=== PATIENT | male | born 1965 | race Hispanic/Latino ===

== ENCOUNTER 2016-12-29 16:53 | Inpatient (IN) | payer MEDICAID ==
[2016-12-29] MEDS ORDERED: Morphine 2 mg/ml ISec ONE (21:33)
[2016-12-29] MEDS ORDERED: Nitroglycerin 2% Ointment Foilpak UD TOP ONE (21:45)
[2016-12-29 22:17] LABS: ALB/GLOB RATIO 0.9 (1.1-1.8); ALBUMIN 3.5 g/dL (3.0-4.8); ALT/SGPT 24 U/L (7-56); AST/SGOT 28 U/L (15-59); BLOOD UREA NITROGEN 15 mg/dL (7-21); CALCIUM 9.1 mg/dL (8.4-10.5); GFR AFRICAN-AMERICAN > 60; GFR NON-AFRICAN AMERICAN > 60; TROPONIN I < 0.01 ng/mL
[2016-12-29 22:19] LABS: HEMOGLOBIN 14.3 gm/dL (14.0-18.0); MEAN CELL VOLUME 94.1 fL (80.0-105.0); MEAN CORPUSCULAR HEMOGLOBIN 32.4 pg (25.0-35.0); MEAN CORPUSCULAR HGB CONC 34.4 g/dl (31.0-37.0); MEAN PLATELET VOLUME 9.9 fl (7.0-11.0); RBC 4.42 10^6/uL (3.5-6.1); RED CELL DISTRIBUTION WIDTH 14.7 % (11.5-14.5); WHITE BLOOD COUNT 8.2 10^3/ul (4.5-11.0)
[2016-12-29 22:20] LABS: PARTIAL THROMBOPLASTIN TIME 29.4 Seconds (23.7-30.8); PROTHROMBIN TIME 10.8 Seconds (9.9-11.8)
[2016-12-30] MEDS: Morphine 2 mg/ml ISec IVP PRN ×5 (01:31→20:30)
[2016-12-30 01:56] VITALS: BMI 28.0
[2016-12-30] MEDS ORDERED: Pneumococcal 23-Valent Vaccine IM ONE (03:17)
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
[2016-12-30 07:16] LABS: BASO # 0.02 K/mm3 (0.0-2.0); BASO % 0.2 % (0.0-3.0); EOS # 0.1 (0.0-0.7); EOS % 0.8 % (1.5-5.0); GRAN # 1.72 (1.4-6.5); GRAN % 18.2 % (50.0-68.0); HEMOGLOBIN 15.6 gm/dL (14.0-18.0); LYMPH # 6.8 (1.2-3.4); MEAN CELL VOLUME 93.8 fL (80.0-105.0); MEAN CORPUSCULAR HEMOGLOBIN 32.1 pg (25.0-35.0); MEAN CORPUSCULAR HGB CONC 34.2 g/dl (31.0-37.0); MEAN PLATELET VOLUME 9.7 fl (7.0-11.0); MONO # 0.8 (0.1-0.6); MONO % 8.8 % (1.0-6.0); PLATELET COUNT 153 10^3/uL (120.0-450.0); RBC 4.86 10^6/uL (3.5-6.1); RED CELL DISTRIBUTION WIDTH 14.7 % (11.5-14.5); WHITE BLOOD COUNT 9.5 10^3/ul (4.5-11.0)
[2016-12-30 08:28] LABS: ALBUMIN 3.6 g/dL (3.0-4.8); ALT/SGPT 18 U/L (7-56); AST/SGOT 29 U/L (15-59); BLOOD UREA NITROGEN 18 mg/dL (7-21); CALCIUM 9.2 mg/dL (8.4-10.5); GFR AFRICAN-AMERICAN > 60; GFR NON-AFRICAN AMERICAN > 60; HDL CHOLESTEROL 33 mg/dL (29-60); LDL CHOLESTEROL 92 mg/dL (0-129)
[2016-12-30] MEDS: Enoxaparin 80 mg Syringe SC SCH ×2 (09:00→20:33)
[2016-12-30] MEDS ORDERED: Nitroglycerin 2% Ointment Foilpak UD TOP STA (09:18)
--- NOTE | 2016-12-30 10:39 | CARD ---
APPROVED REPORT EKG Measurement Heart [id number] <Conclusion> Normal sinus rhythm Normal ECG
--- NOTE | 2016-12-30 11:23 | RAD ---
HISTORY: Chest pain. Technique: Single view portable semi erect @ 17:31. COMPARISON: No prior. FINDINGS: LUNGS: No active pulmonary disease. PLEURA: No significant pleural effusion identified, no pneumothorax apparent. CARDIOVASCULAR: No radiographic findings to suggest acute or significant cardiovascular disease.Position/ configuration of pacemaker device: Satisfactory. OSSEOUS STRUCTURES: No significant abnormalities. VISUALIZED UPPER ABDOMEN: Normal. OTHER FINDINGS: None. IMPRESSION: No active disease.
[2016-12-30] MEDS ORDERED: Morphine 2 mg/ml ISec IVP STA (15:47)
[2016-12-31] MEDS: Morphine 2 mg/ml ISec IVP PRN ×3 (01:32→09:35)
[2016-12-31 07:35] LABS: BASO # 0.02 K/mm3 (0.0-2.0); BASO % 0.3 % (0.0-3.0); EOS # 0.1 (0.0-0.7); EOS % 1.1 % (1.5-5.0); GRAN # 2.01 (1.4-6.5); GRAN % 31.9 % (50.0-68.0); HEMOGLOBIN 16.1 gm/dL (14.0-18.0); LYMPH # 3.6 (1.2-3.4); MEAN CELL VOLUME 92.7 fL (80.0-105.0); MEAN CORPUSCULAR HEMOGLOBIN 32.5 pg (25.0-35.0); MEAN PLATELET VOLUME 9.7 fl (7.0-11.0); MONO # 0.6 (0.1-0.6); MONO % 9.7 % (1.0-6.0); PLATELET COUNT 173 10^3/uL (120.0-450.0); RBC 4.96 10^6/uL (3.5-6.1); RED CELL DISTRIBUTION WIDTH 14.7 % (11.5-14.5); WHITE BLOOD COUNT 6.3 10^3/ul (4.5-11.0)
[2016-12-31] MEDS: Enoxaparin 80 mg Syringe SC SCH ×2 (07:56→21:17)
[2016-12-31 08:13] LABS: ALB/GLOB RATIO 0.9 (1.1-1.8); ALBUMIN 3.6 g/dL (3.0-4.8); ALT/SGPT 16 U/L (7-56); AST/SGOT 28 U/L (15-59); BLOOD UREA NITROGEN 14 mg/dL (7-21); CALCIUM 9.1 mg/dL (8.4-10.5); GFR AFRICAN-AMERICAN > 60; GFR NON-AFRICAN AMERICAN > 60; MAGNESIUM 1.8 mg/dL (1.7-2.2)
[2016-12-31] MEDS: Oxycodone/Acetaminophen 10/325 mg Tab PO PRN ×3 (12:45→21:20)
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
--- NOTE | 2016-12-31 14:09 | CP.PCM.PN ---
<JAMES FINE - Last Filed: 12/31/16 16:15> Subjective - Date & Time of Evaluation Date of Evaluation: 12/31/16 Time of Evaluation: 07:10 - Subjective Subjective: Mr. Hull was seen and examined bedside. The patient was complaining of a headache and chest pain on scale 6-10 that's constant and that the morphine is not doing anything for him. Pt states that his hospital is [facility] ([address] [place] [address]) and states that he is being given Percocet which helps him with his angina pain. Pt denies any other complaints or overnight events. @1500, the pt complained of a bulge in his groin, that he noticed today for the first time as he was washing himself. The bulge is not painful and he states that he has been coughing for the last few days. Objective - Vital Signs/Intake and Output Vital Signs (last 24 hours): Temp Pulse Resp BP Pulse Ox 98.4 F 60 18 132/90 96 12/31/16 12:00 12/31/16 12:00 12/31/16 12:00 12/31/16 12:00 12/31/16 06:00 Intake and Output: 12/31/16 12/31/16 06:59 18:59 Intake Total 900 Output Total 1400 Balance -500 - Medications Medications: Current Medications Alprazolam (Xanax) 0.5 mg PO BID PRN; Protocol PRN Reason: Anxiety Last Admin: 12/31/16 06:36 Dose: 0.5 mg Amlodipine Besylate (Norvasc) 2.5 mg PO DAILY [facility] Last Admin: 12/31/16 10:07 Dose: 2.5 mg Aspirin (Ecotrin) 81 mg PO DAILY [facility] Last Admin: 12/31/16 10:07 Dose: 81 mg Clopidogrel Bisulfate (Plavix) 75 mg PO DAILY [facility] Last Admin: 12/31/16 10:07 Dose: 75 mg Divalproex Sodium (Depakote Dr(*Bid*)) 500 mg PO BID [facility] Enoxaparin Sodium (Lovenox) 80 mg SC Q12H [facility] PRN Reason: Protocol Last Admin: 12/31/16 07:56 Dose: 80 mg Gabapentin (Neurontin) 100 mg PO Q8H [facility] PRN Reason: Protocol Last Admin: 12/31/16 05:19 Dose: 100 mg Isosorbide Mononitrate (Imdur) 30 mg PO DAILY [facility] Metoprolol Tartrate (Lopressor) 25 mg PO BID [facility] Last Admin: 12/31/16 10:07 Dose: 25 mg Morphine Sulfate (Morphine) 1 mg IVP Q4 PRN PRN Reason: SEVERE PAIN Last Admin: 12/31/16 09:35 Dose: 1 mg Oxycodone/Acetaminophen (Percocet 10/325 Mg Tab) 1 tab PO Q4H PRN PRN Reason: Pain, moderate (4-7) Last Admin: 12/31/16 12:45 Dose: 1 tab Pantoprazole Sodium (Protonix Inj) 40 mg IVP DAILY [facility] Last Admin: 12/31/16 10:07 Dose: 40 mg Quetiapine Fumarate (Seroquel) 50 mg PO HS [facility] PRN Reason: Protocol Last Admin: 12/30/16 21:18 Dose: 50 mg - Labs Labs: 12/31/16 07:15 12/31/16 07:15 PT 10.8 Seconds (9.9-11.8) 12/29/16 17:45 INR 1.00 (0.93-1.08) 12/29/16 17:45 APTT 29.4 Seconds (23.7-30.8) 12/29/16 17:45 - Constitutional Appears: Well, No Acute Distress - Head Exam Head Exam: ATRAUMATIC, NORMAL INSPECTION, NORMOCEPHALIC - Eye Exam Eye Exam: Normal appearance - ENT Exam ENT Exam: Mucous Membranes Moist - Respiratory Exam Respiratory Exam: Clear to Ausculation Bilateral, NORMAL BREATHING PATTERN. absent: Rales, Rhonchi, Wheezes - Cardiovascular Exam Cardiovascular Exam: RRR - GI/Abdominal Exam GI & Abdominal Exam: Soft, Normal Bowel Sounds. absent: Mass - Exam External exam: Swelling Additional comments: R sided hernia (reducible) - Neurological Exam Neurological Exam: Alert, Awake, Oriented x3 - Psychiatric Exam Psychiatric exam: Anxious Assessment and Plan - Assessment and Plan (Free Text) Assessment: 51 yo M PMHx CAD s/p stent a few years ago, with recent cath at [facility] [place] who presented with left-sided chest pain radiating into the left arm and neck. 1. Chest pain r/o ACS 2. Anxiety 3. Hernia Plan: 1. Chest pain r/o ACS - cath report obtained from [facility] [place] showed coronaries were normal except non- obstructive single vessel CAD; pacemaker interrogated. - start Imdur for angina - start pt on Percocet for pain control (verified with pharmacy that he takes ) - Troponin negative x3 - EKG showed NSR - Cardiology consulted; recs appreciated 2. Anxiety - restarted Depakot (outpatient med) 3. Hernia is reducible - f/u outpatient GI prophylaxis: Protonix Pt seen, discussed and evaluated with Dr. Schmitz <Nadir ALEJANDRO,Danie - Last Filed: 12/31/16 16:38> Objective - Vital Signs/Intake and Output Vital Signs (last 24 hours): Temp Pulse Resp BP Pulse Ox 98.4 F 64 18 132/90 96 12/31/16 12:00 12/31/16 14:00 12/31/16 12:00 12/31/16 12:00 12/31/16 06:00 Intake and Output: 12/31/16 12/31/16 06:59 18:59 Intake Total 900 Output Total 1400 Balance -500 - Medications Medications: Current Medications Alprazolam (Xanax) 0.5 mg PO BID PRN; Protocol PRN Reason: Anxiety Last Admin: 12/31/16 06:36 Dose: 0.5 mg Amlodipine Besylate (Norvasc) 2.5 mg PO DAILY [facility] Last Admin: 12/31/16 10:07 Dose: 2.5 mg Aspirin (Ecotrin) 81 mg PO DAILY [facility] Last Admin: 12/31/16 10:07 Dose: 81 mg Clopidogrel Bisulfate (Plavix) 75 mg PO DAILY [facility] Last Admin: 12/31/16 10:07 Dose: 75 mg Divalproex Sodium (Depakote Dr(*Bid*)) 500 mg PO BID [facility] Enoxaparin Sodium (Lovenox) 80 mg SC Q12H [facility] PRN Reason: Protocol Last Admin: 12/31/16 07:56 Dose: 80 mg Gabapentin (Neurontin) 100 mg PO Q8H [facility] PRN Reason: Protocol Last Admin: 12/31/16 14:27 Dose: 100 mg Isosorbide Mononitrate (Imdur) 30 mg PO DAILY [facility] Metoprolol Tartrate (Lopressor) 25 mg PO BID [facility] Last Admin: 12/31/16 10:07 Dose: 25 mg Morphine Sulfate (Morphine) 1 mg IVP Q4 PRN PRN Reason: SEVERE PAIN Last Admin: 12/31/16 09:35 Dose: 1 mg Oxycodone/Acetaminophen (Percocet 10/325 Mg Tab) 1 tab PO Q4H PRN PRN Reason: Pain, moderate (4-7) Last Admin: 12/31/16 12:45 Dose: 1 tab Pantoprazole Sodium (Protonix Inj) 40 mg IVP DAILY [facility] Last Admin: 12/31/16 10:07 Dose: 40 mg Quetiapine Fumarate (Seroquel) 50 mg PO HS [facility] PRN Reason: Protocol Last Admin: 12/30/16 21:18 Dose: 50 mg - Labs Labs: 12/31/16 07:15 12/31/16 07:15 PT 10.8 Seconds (9.9-11.8) 12/29/16 17:45 INR 1.00 (0.93-1.08) 12/29/16 17:45 APTT 29.4 Seconds (23.7-30.8) 12/29/16 17:45 Attending/Attestation - Attestation I have personally seen and examined this patient.: Yes I have fully participated in the care of the patient.: Yes I have reviewed all pertinent clinical information, including history, physical exam and plan: Yes Notes (Text): 12/31/16 16:35 Patient was seen and examined with medical orderly .Agreed with resident assessment and plan. 51 M with PMH of CAD,sp Stent, SP pacemaker , [place] [facility] [place] was admitted with chest pain, EKG is NSR, serial troponins normal, patient is still c/o chest pain on ASA/Plavix/lovenox/metoprolol and amlodipine ,we will add Imdur.,aw[place]ing [place] cardiac [place] [facility] [place]We will follow up cardiology recommendation. Patient also has right inguinal hernia which is reducible. Management plan was discussed in detail with patient Education was provided.
[2016-12-31 15:43] LABS: BARBITURATES, UR NEGATIVE (NEGATIVE); BENZODIAZEPINES, UR NEGATIVE (NEGATIVE); OPIATES, UR NEGATIVE (NEGATIVE); PHENCYCLIDINE, UR NEGATIVE (NEGATIVE)
[2016-12-31] MEDS: Divalproex 500 mg DR(BID formulation) PO SCH (17:16)
[2017-01-01] MEDS: Oxycodone/Acetaminophen 10/325 mg Tab PO PRN ×5 (01:55→20:05)
[2017-01-01] MEDS: Enoxaparin 80 mg Syringe SC SCH ×2 (09:16→21:02)
[2017-01-01] MEDS: Divalproex 500 mg DR(BID formulation) PO SCH ×2 (09:16→17:44)
[2017-01-01 09:48] LABS: HEMOGLOBIN 16.5 gm/dL (14.0-18.0); MEAN CORPUSCULAR HEMOGLOBIN 32.2 pg (25.0-35.0); MEAN CORPUSCULAR HGB CONC 34.2 g/dl (31.0-37.0); MEAN PLATELET VOLUME 9.8 fl (7.0-11.0); RBC 5.13 10^6/uL (3.5-6.1); RED CELL DISTRIBUTION WIDTH 14.7 % (11.5-14.5); WHITE BLOOD COUNT 4.9 10^3/ul (4.5-11.0)
[2017-01-01 10:04] LABS: ALB/GLOB RATIO 0.9 (1.1-1.8); ALBUMIN 3.6 g/dL (3.0-4.8); ALT/SGPT 20 U/L (7-56); AST/SGOT 29 U/L (15-59); BLOOD UREA NITROGEN 17 mg/dL (7-21); GFR AFRICAN-AMERICAN > 60; GFR NON-AFRICAN AMERICAN > 60
--- NOTE | 2017-01-01 12:39 | CP.PCM.PN ---
Subjective - Date & Time of Evaluation Date of Evaluation: 01/01/17 Time of Evaluation: 12:35 - Subjective Subjective: c/o chest pain and SOB [place] [facility] [place] 50% ostial D1 and 40% prox RCA Normal EF Objective - Vital Signs/Intake and Output Vital Signs (last 24 hours): Temp Pulse Resp BP Pulse Ox 97.6 F 60 18 96/66 L 97 01/01/17 06:00 01/01/17 06:00 01/01/17 06:00 01/01/17 11:32 01/01/17 06:00 Intake and Output: 01/01/17 01/01/17 06:59 18:59 Intake Total 0 Output Total 800 Balance -800 - Medications Medications: Current Medications Alprazolam (Xanax) 0.5 mg PO BID PRN; Protocol PRN Reason: Anxiety Last Admin: 01/01/17 05:21 Dose: 0.5 mg Amlodipine Besylate (Norvasc) 2.5 mg PO DAILY [facility] Last Admin: 01/01/17 11:32 Dose: Not Given Aspirin (Ecotrin) 81 mg PO DAILY [facility] Last Admin: 01/01/17 09:16 Dose: 81 mg Clopidogrel Bisulfate (Plavix) 75 mg PO DAILY [facility] Last Admin: 01/01/17 09:16 Dose: 75 mg Divalproex Sodium (Depakote Dr(*Bid*)) 500 mg PO BID [facility] Last Admin: 01/01/17 09:16 Dose: 500 mg Enoxaparin Sodium (Lovenox) 80 mg SC Q12H [facility] PRN Reason: Protocol Last Admin: 01/01/17 09:16 Dose: 80 mg Gabapentin (Neurontin) 100 mg PO Q8H [facility] PRN Reason: Protocol Last Admin: 01/01/17 05:21 Dose: 100 mg Isosorbide Mononitrate (Imdur) 30 mg PO DAILY [facility] Last Admin: 01/01/17 11:32 Dose: Not Given Metoprolol Tartrate (Lopressor) 25 mg PO BID [facility] Last Admin: 01/01/17 11:32 Dose: Not Given Morphine Sulfate (Morphine) 1 mg IVP Q4 PRN PRN Reason: SEVERE PAIN Last Admin: 12/31/16 09:35 Dose: 1 mg Oxycodone/Acetaminophen (Percocet 10/325 Mg Tab) 1 tab PO Q4H PRN PRN Reason: Pain, moderate (4-7) Last Admin: 01/01/17 11:31 Dose: 1 tab Pantoprazole Sodium (Protonix Inj) 40 mg IVP DAILY [facility] Last Admin: 01/01/17 09:17 Dose: 40 mg Quetiapine Fumarate (Seroquel) 50 mg PO HS [facility] PRN Reason: Protocol Last Admin: 12/31/16 21:17 Dose: 50 mg - Labs Labs: 01/01/17 09:43 01/01/17 09:43 PT 10.8 Seconds (9.9-11.8) 12/29/16 17:45 INR 1.00 (0.93-1.08) 12/29/16 17:45 APTT 29.4 Seconds (23.7-30.8) 12/29/16 17:45 - Head Exam Head Exam: NORMOCEPHALIC - Eye Exam Eye Exam: Normal appearance - Neck Exam Neck Exam: Normal Inspection - Respiratory Exam Respiratory Exam: Clear to Ausculation Bilateral - Cardiovascular Exam Cardiovascular Exam: Irregular Rhythm - Extremities Exam Extremities Exam: Normal Inspection Assessment and Plan - Assessment and Plan (Free Text) Assessment: Chest pain OR was R/O Plan: Cont. Alprazolam (Xanax) 0.5 mg PO BID PRN; Protocol PRN Reason: Anxiety Last Admin: 01/01/17 05:21 Dose: 0.5 mg Amlodipine Besylate (Norvasc) 2.5 mg PO DAILY [facility] Last Admin: 01/01/17 11:32 Dose: Not Given Aspirin (Ecotrin) 81 mg PO DAILY [facility] Last Admin: 01/01/17 09:16 Dose: 81 mg Clopidogrel Bisulfate (Plavix) 75 mg PO DAILY [facility] Last Admin: 01/01/17 09:16 Dose: 75 mg Divalproex Sodium (Depakote Dr(*Bid*)) 500 mg PO BID [facility] Last Admin: 01/01/17 09:16 Dose: 500 mg Enoxaparin Sodium (Lovenox) 80 mg SC Q12H [facility] PRN Reason: Protocol Last Admin: 01/01/17 09:16 Dose: 80 mg Gabapentin (Neurontin) 100 mg PO Q8H [facility] PRN Reason: Protocol Last Admin: 01/01/17 05:21 Dose: 100 mg Isosorbide Mononitrate (Imdur) 30 mg PO DAILY [facility] Last Admin: 01/01/17 11:32 Dose: Not Given Metoprolol Tartrate (Lopressor) 25 mg PO BID [facility] Last Admin: 01/01/17 11:32 Dose: Not Given Morphine Sulfate (Morphine) 1 mg IVP Q4 PRN PRN Reason: SEVERE PAIN Last Admin: 12/31/16 09:35 Dose: 1 mg Oxycodone/Acetaminophen (Percocet 10/325 Mg Tab) 1 tab PO Q4H PRN PRN Reason: Pain, moderate (4-7) Last Admin: 01/01/17 11:31 Dose: 1 tab Pantoprazole Sodium (Protonix Inj) 40 mg IVP DAILY [facility] Last Admin: 01/01/17 09:17 Dose: 40 mg Quetiapine Fumarate (Seroquel) 50 mg PO HS [facility] PRN Reason: Protocol Last Admin: 12/31/16 21:17 Dose: [address] angio PE protocol
[2017-01-01] MEDS ORDERED: Iodixanol 320 MG/ML 100 ML BOTTLE IV ONE (13:12)
--- NOTE | 2017-01-01 13:58 | CP.PCM.PN ---
<JAMES HART - Last Filed: 01/01/17 16:01> Subjective - Date & Time of Evaluation Date of Evaluation: 01/01/17 Time of Evaluation: 09:00 - Subjective Subjective: Pt was seen and examined bedside. Pt complained of overnight profuse sweating and left-sided chest pain that he states is "internal" as well as a headache and right kidney pain. Pt states that hernia has not been bothering him since he has not tried getting up. Objective - Vital Signs/Intake and Output Vital Signs (last 24 hours): Temp Pulse Resp BP Pulse Ox 98.5 F 69 20 96/66 L 97 01/01/17 12:00 01/01/17 12:00 01/01/17 12:00 01/01/17 12:00 01/01/17 06:00 Intake and Output: 01/01/17 01/01/17 06:59 18:59 Intake Total 0 Output Total 800 Balance -800 - Medications Medications: Current Medications Alprazolam (Xanax) 0.5 mg PO BID PRN; Protocol PRN Reason: Anxiety Last Admin: 01/01/17 05:21 Dose: 0.5 mg Amlodipine Besylate (Norvasc) 2.5 mg PO DAILY [facility] Last Admin: 01/01/17 11:32 Dose: Not Given Aspirin (Ecotrin) 81 mg PO DAILY [facility] Last Admin: 01/01/17 09:16 Dose: 81 mg Clopidogrel Bisulfate (Plavix) 75 mg PO DAILY [facility] Last Admin: 01/01/17 09:16 Dose: 75 mg Divalproex Sodium (Depakote Dr(*Bid*)) 500 mg PO BID [facility] Last Admin: 01/01/17 09:16 Dose: 500 mg Enoxaparin Sodium (Lovenox) 80 mg SC Q12H [facility] PRN Reason: Protocol Last Admin: 01/01/17 09:16 Dose: 80 mg Gabapentin (Neurontin) 100 mg PO Q8H [facility] PRN Reason: Protocol Last Admin: 01/01/17 05:21 Dose: 100 mg Metoprolol Tartrate (Lopressor) 25 mg PO BID [facility] Last Admin: 01/01/17 11:32 Dose: Not Given Morphine Sulfate (Morphine) 1 mg IVP Q4 PRN PRN Reason: SEVERE PAIN Last Admin: 12/31/16 09:35 Dose: 1 mg Oxycodone/Acetaminophen (Percocet 10/325 Mg Tab) 1 tab PO Q4H PRN PRN Reason: Pain, moderate (4-7) Last Admin: 01/01/17 11:31 Dose: 1 tab Pantoprazole Sodium (Protonix Inj) 40 mg IVP DAILY [facility] Last Admin: 01/01/17 09:17 Dose: 40 mg Quetiapine Fumarate (Seroquel) 50 mg PO HS [facility] PRN Reason: Protocol Last Admin: 12/31/16 21:17 Dose: 50 mg - Labs Labs: 01/01/17 09:43 01/01/17 09:43 PT 10.8 Seconds (9.9-11.8) 12/29/16 17:45 INR 1.00 (0.93-1.08) 12/29/16 17:45 APTT 29.4 Seconds (23.7-30.8) 12/29/16 17:45 - Constitutional Appears: Well, No Acute Distress - Head Exam Head Exam: ATRAUMATIC, NORMOCEPHALIC - Eye Exam Eye Exam: EOMI, Normal appearance - ENT Exam ENT Exam: Mucous Membranes Moist, Normal Exam - Respiratory Exam Respiratory Exam: Clear to Ausculation Bilateral. absent: Rales, Rhonchi, Wheezes, Respiratory Distress - Cardiovascular Exam Cardiovascular Exam: REGULAR RHYTHM. absent: Gallop, JVD, Rubs, Murmur - GI/Abdominal Exam GI & Abdominal Exam: Soft, Hernia (R sided inguinal hernia reducible and only slightly tender to palpation). absent: Guarding, Tenderness - Neurological Exam Neurological Exam: Alert, Awake, Oriented x3 - Psychiatric Exam Psychiatric exam: Anxious, Normal Mood - Skin Skin Exam: Normal Color, Warm. absent: Cyanosis Assessment and Plan - Assessment and Plan (Free Text) Assessment: 51 yo M PMHx CAD s/p stent a few years ago, with recent cath at [facility] who presented with left-sided chest pain radiating into the left arm and neck. Tropnins negative x3 1. Chest pain r/o ACS 2. UTI 3. Anxiety 4. Hernia Plan: 1. Chest pain - CTA chest (01/01/17): Limited study. No central pulomary embolus to level of lobar vessels. 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 - discontinue Imdur due to hypotension - continue pt on Percocet, Neuorontin for pain control; morphine PRN - continue on Norvasc, ASA 81, Lopressor for symptom relief - Cardio consult appreciated 2. UTI - +leukocyte esterase on UA - started on Rocephin 3. Anxiety - continue Depakot, Seroquel and Celexa 4. Hernia is reducible - f/u outpatient GI/DVT prophylaxis: Protonix/Plavix Case seen, discussed and full evaluated with attending, Dr. Hima Hart, PGY1 <Lucía Rabago B - Last Filed: 01/03/17 16:47> Objective - Vital Signs/Intake and Output Vital Signs (last 24 hours): Temp Pulse Resp BP Pulse Ox 98 F 79 20 107/69 99 01/03/17 12:00 01/03/17 14:00 01/03/17 12:00 01/03/17 12:00 01/03/17 05:16 Intake and Output: 01/03/17 01/03/17 06:59 18:59 Intake Total 1380 120 Output Total 1300 300 Balance 80 -180 - Medications Medications: Current Medications Alprazolam (Xanax) 0.5 mg PO BID PRN; Protocol PRN Reason: Anxiety Last Admin: 01/03/17 11:38 Dose: 0.5 mg Amlodipine Besylate (Norvasc) 2.5 mg PO DAILY [facility] Last Admin: 01/03/17 10:34 Dose: Not Given Apixaban (Eliquis) 10 mg PO BID [facility] PRN Reason: Protocol Last Admin: 01/03/17 09:23 Dose: 10 mg Aspirin (Ecotrin) 81 mg PO DAILY [facility] Last Admin: 01/03/17 09:23 Dose: 81 mg Citalopram Hydrobromide (Celexa) 40 mg PO DAILY [facility] Last Admin: 01/03/17 09:23 Dose: 40 mg Clopidogrel Bisulfate (Plavix) 75 mg PO DAILY [facility] Last Admin: 01/03/17 09:23 Dose: 75 mg Diazepam (Valium) 2 mg PO BID PRN; Protocol PRN Reason: vertigo Last Admin: 01/03/17 09:23 Dose: 2 mg Divalproex Sodium (Depakote Dr(*Bid*)) 500 mg PO BID [facility] Last Admin: 01/03/17 10:27 Dose: 500 mg Enoxaparin Sodium (Lovenox) 80 mg SC Q12H [facility] PRN Reason: Protocol Last Admin: 01/03/17 10:27 Dose: 80 mg Gabapentin (Neurontin) 100 mg PO Q8H [facility] PRN Reason: Protocol Last Admin: 01/03/17 14:00 Dose: 100 mg Ceftriaxone Sodium (Rocephin 1 Gram Ivpb) 1 gm in 100 mls @ 100 mls/hr IVPB DAILY [facility] PRN Reason: Protocol Last Admin: 01/03/17 09:24 Dose: 100 mls/hr Metoprolol Tartrate (Lopressor) 25 mg PO BID [facility] Last Admin: 01/02/17 09:33 Dose: Not Given Oxycodone/Acetaminophen (Percocet 10/325 Mg Tab) 1 tab PO Q4H PRN PRN Reason: Pain, moderate (4-7) Last Admin: 01/03/17 13:59 Dose: 1 tab Pantoprazole Sodium (Protonix Inj) 40 mg IVP DAILY [facility] Last Admin: 01/03/17 09:24 Dose: 40 mg Quetiapine Fumarate (Seroquel) 50 mg PO HS [facility] PRN Reason: Protocol Last Admin: 01/02/17 21:20 Dose: 50 mg - Labs Labs: 01/03/17 06:20 01/03/17 06:20 PT 10.8 Seconds (9.9-11.8) 12/29/16 17:45 INR 1.00 (0.93-1.08) 12/29/16 17:45 APTT 29.4 Seconds (23.7-30.8) 12/29/16 17:45 Attending/Attestation - Attestation I have personally seen and examined this patient.: Yes I have fully participated in the care of the patient.: Yes I have reviewed all pertinent clinical information, including history, physical exam and plan: Yes Notes (Text): I have seen and examined patient with the resident. Agree with the note dictated above with the following additions/ exceptions: Briefly this is 51 year old male with history of CAD s/p stent, PPM, recent cath at [facility] [place] (07/23/2016 ) which showed normal EF and non obstructive CAD who came for evaluation of chest pain and LUE intermittent swelling. Serial troponins and ekg normal. As DDimer was elevated CT angio was done which revealed chronic thrombosis of Left UE thrombosis. Eliquis started as per cardio recommendations. He also complains of feeling weak. PT eval pending. Upon discharge patient will follow up with PMD of choice. Dr Lucía Rabago
--- NOTE | 2017-01-01 14:23 | CT ---
PROCEDURE: CT Chest with contrast (Pulmonary Angiogram) HISTORY: r/o PE COMPARISON: None available. TECHNIQUE: Axial computed tomography images were obtained of the chest in the pulmonary arterial phase of enhancement. Coronal and sagittal reformatted images were created and reviewed. Intravenous contrast dose: 100 mL Visipaque 320 Radiation dose: Total exam DLP = 547.92 mGy-cm. This CT exam was performed using one or more of the following dose reduction techniques: Automated exposure control, adjustment of the mA and/or kV according to patient size, and/or use of iterative reconstruction technique. FINDINGS: PULMONARY ARTERIES: Evaluation of the pulmonary arteries is technically limited due to suboptimal timing of the scan relative to the contrast bolus. There are no central pulmonary artery filling defects including main, right and left and lobar vessels. Segmental and subsegmental vessels are suboptimally evaluated on the basis of this examination. AORTA: No acute findings. No thoracic aortic aneurysm. LUNGS: No pulmonary infiltrate. Linear scar/ atelectasis in right lower lobe and lingular segment of left upper lobe. PLEURAL SPACES: Unremarkable. No effusion or pneuomothorax. HEART: Normal heart size. Permanent pacemaker. No pericardial effusion. LYMPH NODES: No lymphadenopathy. BONES, CHEST WALL: Unremarkable. No fracture or destructive lesion OTHER FINDINGS: There is probable chronic thrombosis of the mid left subclavian vein, with extensive collateral circulation about the left chest wall, highlighted by a the high-pressure injection in the left upper extremity, utilized for this examination. . Of note, future CT examinations with intravenous contrast should utilized a right upper extremity for injection due to this occlusion. IMPRESSION: Limited evaluation for pulmonary embolism. No central pulmonary embolus than to the level of the lobar vessels. Segmental and subsegmental vessels are suboptimally evaluated on the basis of this examination. 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
[2017-01-01 15:04] LABS: URINE BILIRUBIN NEGATIVE (NEGATIVE); URINE BLOOD SMALL (NEGATIVE); URINE GLUCOSE (UA) 100 mg/dL (NEGATIVE); URINE LEUKOCYTE ESTERASE LARGE Leu/uL (NEGATIVE); URINE NITRATE NEGATIVE (NEGATIVE); URINE PROTEIN NEGATIVE mg/dL (<30 mg/dL); URINE UROBILINOGEN 0.2 E.U./dL (<1 E.U./dL)
[2017-01-01 15:07] LABS: URINE APPEARANCE CLEAR (CLEAR); URINE COLOR YELLOW (YELLOW)
[2017-01-01 15:14] LABS: URINE WBC TNTC /hpf (0-6)
[2017-01-01 15:16] LABS: URINE BACTERIA OCC (NEG)
[2017-01-01] MEDS: cefTRIAXone 1 gm 1 GM/100 ML BAG IVPB SCH (15:56)
[2017-01-02] MEDS: Oxycodone/Acetaminophen 10/325 mg Tab PO PRN ×5 (04:42→21:21)
[2017-01-02 06:40] LABS: HEMOGLOBIN 16.8 gm/dL (14.0-18.0); MEAN CELL VOLUME 94.4 fL (80.0-105.0); MEAN CORPUSCULAR HEMOGLOBIN 31.6 pg (25.0-35.0); MEAN CORPUSCULAR HGB CONC 33.5 g/dl (31.0-37.0); MEAN PLATELET VOLUME 9.9 fl (7.0-11.0); RBC 5.31 10^6/uL (3.5-6.1); RED CELL DISTRIBUTION WIDTH 14.9 % (11.5-14.5); WHITE BLOOD COUNT 5.9 10^3/ul (4.5-11.0)
[2017-01-02] MEDS: Enoxaparin 80 mg Syringe SC SCH ×2 (08:10→21:20)
[2017-01-02 08:59] LABS: ALB/GLOB RATIO 0.9 (1.1-1.8); ALBUMIN 3.8 g/dL (3.0-4.8); ALT/SGPT 19 U/L (7-56); AST/SGOT 38 U/L (15-59); BLOOD UREA NITROGEN 18 mg/dL (7-21); CALCIUM 9.3 mg/dL (8.4-10.5); GFR AFRICAN-AMERICAN > 60; GFR NON-AFRICAN AMERICAN > 60
[2017-01-02] MEDS: Divalproex 500 mg DR(BID formulation) PO SCH ×2 (09:31→17:15)
[2017-01-02] MEDS: cefTRIAXone 1 gm 1 GM/100 ML BAG IVPB SCH (09:33)
--- NOTE | 2017-01-02 16:42 | CARD ---
APPROVED REPORT EXAM: Two-dimensional and M-mode echocardiogram with Doppler and color Doppler. INDICATION Chest Pain 2D DIMENSIONS Left Atrium (2D)3.3 (1.6-4.0cm)IVSd1.2 (0.7-1.1cm) LVDd4.9 (3.9-5.9cm)PWd1.3 (0.7-1.1cm) LVDs3.3 (2.5-4.0cm)FS (%) 32.8 % LVEF (%)61.2 (>50%) M-Mode DIMENSIONS Aortic Root3.10 (2.2-3.7cm)Aortic Cusp Exc.2.20 (1.5-2.0cm) Aortic Valve AoV Peak Bkbgsmhz938.0cm/Briseida Peak GR.6mmHg Mitral Valve MV E Bfuyowbe19.8cm/sMV A Kxkqnvvf14.6cm/sE/A ratio0.9 TDI E/Lateral E'0.0E/Medial E'0.0 Tricuspid Valve TR Peak Mpksvrbd001qp/sRAP [id number] Peak Gr.30mmHg [id number] LEFT VENTRICLE The left ventricle is normal size. There is mild concentric left ventricular hypertrophy. The left ventricular function is normal. The left ventricular ejection fraction is within the normal range. There is normal LV segmental wall motion. Transmitral Doppler flow pattern is Grade I-abnormal relaxation pattern. RIGHT VENTRICLE The right ventricle is normal size. There is normal right ventricular wall thickness. The right ventricular systolic function is normal. There is a pacemaker lead in the right ventricle. ATRIA The left atrium size is normal. The right atrium size is normal. AORTIC VALVE The aortic valve is normal in structure. MITRAL VALVE The mitral valve is mildly thickened. TRICUSPID VALVE There is mild pulmonary hypertension. GREAT VESSELS The aortic root is normal in size. The IVC is normal in size and collapses >50% with inspiration. PERICARDIAL EFFUSION There is no pericardial effusion. <Conclusion> The left ventricle is normal size. There is mild concentric left ventricular hypertrophy. The left ventricular function is normal. The left ventricular ejection fraction is within the normal range. There is normal LV segmental wall motion. Transmitral Doppler flow pattern is Grade I-abnormal relaxation pattern. There is mild pulmonary hypertension.
--- NOTE | 2017-01-02 16:50 | CP.PCM.PN ---
<JAMES HATR - Last Filed: 01/02/17 16:50> Subjective - Date & Time of Evaluation Date of Evaluation: 01/02/17 Time of Evaluation: 10:50 - Subjective Subjective: Patient was seen and examined bedside. Continues to complain of the same pain overnight, and shortness of breath when ambulating. Pt denies fevers, n/v/d. Objective - Vital Signs/Intake and Output Vital Signs (last 24 hours): Temp Pulse Resp BP Pulse Ox 97.9 F 72 20 93/52 L 96 01/02/17 06:00 01/02/17 14:00 01/02/17 06:00 01/02/17 06:00 01/02/17 06:00 Intake and Output: 01/02/17 01/02/17 06:59 18:59 Intake Total 700 Output Total 700 Balance 0 - Medications Medications: Current Medications Alprazolam (Xanax) 0.5 mg PO BID PRN; Protocol PRN Reason: Anxiety Last Admin: 01/02/17 06:07 Dose: 0.5 mg Amlodipine Besylate (Norvasc) 2.5 mg PO DAILY [facility] Last Admin: 01/02/17 09:33 Dose: Not Given Apixaban (Eliquis) 10 mg PO BID [facility] PRN Reason: Protocol Aspirin (Ecotrin) 81 mg PO DAILY [facility] Last Admin: 01/02/17 09:32 Dose: 81 mg Citalopram Hydrobromide (Celexa) 40 mg PO DAILY [facility] Last Admin: 01/02/17 09:32 Dose: 40 mg Clopidogrel Bisulfate (Plavix) 75 mg PO DAILY [facility] Last Admin: 01/02/17 09:33 Dose: 75 mg Divalproex Sodium (Depakote Dr(*Bid*)) 500 mg PO BID [facility] Last Admin: 01/02/17 09:31 Dose: 500 mg Enoxaparin Sodium (Lovenox) 80 mg SC Q12H [facility] PRN Reason: Protocol Last Admin: 01/02/17 08:10 Dose: 80 mg Gabapentin (Neurontin) 100 mg PO Q8H [facility] PRN Reason: Protocol Last Admin: 01/02/17 13:21 Dose: 100 mg Ceftriaxone Sodium (Rocephin 1 Gram Ivpb) 1 gm in 100 mls @ 100 mls/hr IVPB DAILY [facility] PRN Reason: Protocol Last Admin: 01/02/17 09:33 Dose: 100 mls/hr Metoprolol Tartrate (Lopressor) 25 mg PO BID [facility] Last Admin: 01/02/17 09:33 Dose: Not Given Morphine Sulfate (Morphine) 1 mg IVP Q4 PRN PRN Reason: SEVERE PAIN Last Admin: 12/31/16 09:35 Dose: 1 mg Oxycodone/Acetaminophen (Percocet 10/325 Mg Tab) 1 tab PO Q4H PRN PRN Reason: Pain, moderate (4-7) Last Admin: 01/02/17 13:20 Dose: 1 tab Pantoprazole Sodium (Protonix Inj) 40 mg IVP DAILY [facility] Last Admin: 01/02/17 09:32 Dose: 40 mg Quetiapine Fumarate (Seroquel) 50 mg PO HS [facility] PRN Reason: Protocol Last Admin: 01/01/17 21:04 Dose: 50 mg - Labs Labs: 01/02/17 05:30 01/02/17 08:00 PT 10.8 Seconds (9.9-11.8) 12/29/16 17:45 INR 1.00 (0.93-1.08) 12/29/16 17:45 APTT 29.4 Seconds (23.7-30.8) 12/29/16 17:45 - Constitutional Appears: Well, No Acute Distress - Head Exam Head Exam: ATRAUMATIC, NORMAL INSPECTION, NORMOCEPHALIC - Eye Exam Eye Exam: EOMI, Normal appearance, PERRL - ENT Exam ENT Exam: Mucous Membranes Moist, Normal Exam - Respiratory Exam Respiratory Exam: Clear to Ausculation Bilateral, NORMAL BREATHING PATTERN. absent: Rales, Rhonchi, Wheezes, Respiratory Distress - Cardiovascular Exam Cardiovascular Exam: RRR. absent: Gallop, Rubs, Murmur - GI/Abdominal Exam GI & Abdominal Exam: Soft, Normal Bowel Sounds. absent: Distended, Tenderness - Psychiatric Exam Psychiatric exam: Normal Affect, Normal Mood - Skin Skin Exam: Normal Color. absent: Cyanosis, Pallor Assessment and Plan - Assessment and Plan (Free Text) Assessment: 51 yo M PMHx CAD s/p stent a few years ago, with recent cath [place] [facility] who presented with left-sided chest pain radiating into the left arm and neck. Tropnins negative x3, CT negative for PE but showed thrombosis in L subclavian. Echo shows normal EF. 1. Chest pain r/o ACS 2. Vertigo 3. UTI 4. Anxiety 5. Hernia Plan: 1. Chest pain r/o ACS - Echo showed LVEF within normal range, and mild pulmonary hypertension - continue pt on Percocet, Neuorontin and morphine PRN for pain control; - Cardio consult appreciated 2. Vertigo - Lopressor discontinued due to hypotension and dizziness - Pt tested negative for orthostatic hypotension - Pt failed Physical Therapy eval due to dizziness when ambulating 3. UTI - continued on Rocephin 4. Anxiety - continue Depakot, Seroquel and Celexa 5. Hernia is reducible - f/u outpatient GI/DVT prophylaxis: Protonix/Plavix Case seen, discussed and full evaluated with attending, Dr. Hima Hart, PGY1 <Lucía Rabago - Last Filed: 01/03/17 17:00> Objective - Vital Signs/Intake and Output Vital Signs (last 24 hours): Temp Pulse Resp BP Pulse Ox 98 F 79 20 107/69 99 01/03/17 12:00 01/03/17 14:00 01/03/17 12:00 01/03/17 12:00 01/03/17 05:16 Intake and Output: 01/03/17 01/03/17 06:59 18:59 Intake Total 1380 120 Output Total 1300 300 Balance 80 -180 - Medications Medications: Current Medications Alprazolam (Xanax) 0.5 mg PO BID PRN; Protocol PRN Reason: Anxiety Last Admin: 01/03/17 11:38 Dose: 0.5 mg Amlodipine Besylate (Norvasc) 2.5 mg PO DAILY [facility] Last Admin: 01/03/17 10:34 Dose: Not Given Apixaban (Eliquis) 10 mg PO BID [facility] PRN Reason: Protocol Last Admin: 01/03/17 09:23 Dose: 10 mg Aspirin (Ecotrin) 81 mg PO DAILY [facility] Last Admin: 01/03/17 09:23 Dose: 81 mg Citalopram Hydrobromide (Celexa) 40 mg PO DAILY [facility] Last Admin: 01/03/17 09:23 Dose: 40 mg Clopidogrel Bisulfate (Plavix) 75 mg PO DAILY [facility] Last Admin: 01/03/17 09:23 Dose: 75 mg Diazepam (Valium) 2 mg PO BID PRN; Protocol PRN Reason: vertigo Last Admin: 01/03/17 09:23 Dose: 2 mg Divalproex Sodium (Depakote Dr(*Bid*)) 500 mg PO BID [facility] Last Admin: 01/03/17 10:27 Dose: 500 mg Enoxaparin Sodium (Lovenox) 80 mg SC Q12H [facility] PRN Reason: Protocol Last Admin: 01/03/17 10:27 Dose: 80 mg Gabapentin (Neurontin) 100 mg PO Q8H [facility] PRN Reason: Protocol Last Admin: 01/03/17 14:00 Dose: 100 mg Ceftriaxone Sodium (Rocephin 1 Gram Ivpb) 1 gm in 100 mls @ 100 mls/hr IVPB DAILY [facility] PRN Reason: Protocol Last Admin: 01/03/17 09:24 Dose: 100 mls/hr Metoprolol Tartrate (Lopressor) 25 mg PO BID [facility] Last Admin: 01/02/17 09:33 Dose: Not Given Oxycodone/Acetaminophen (Percocet 10/325 Mg Tab) 1 tab PO Q4H PRN PRN Reason: Pain, moderate (4-7) Last Admin: 01/03/17 13:59 Dose: 1 tab Pantoprazole Sodium (Protonix Inj) 40 mg IVP DAILY [facility] Last Admin: 01/03/17 09:24 Dose: 40 mg Quetiapine Fumarate (Seroquel) 50 mg PO HS [facility] PRN Reason: Protocol Last Admin: 01/02/17 21:20 Dose: 50 mg - Labs Labs: 01/03/17 06:20 01/03/17 06:20 PT 10.8 Seconds (9.9-11.8) 12/29/16 17:45 INR 1.00 (0.93-1.08) 12/29/16 17:45 APTT 29.4 Seconds (23.7-30.8) 12/29/16 17:45 Attending/Attestation - Attestation I have personally seen and examined this patient.: Yes I have fully participated in the care of the patient.: Yes I have reviewed all pertinent clinical information, including history, physical exam and plan: Yes Notes (Text): I have seen and examined patient with the resident. Agree with the note dictated above with the following additions / exceptions: Briefly this is 51 year old male with history of CAD s/p stent, PPM, recent cath [place] [facility] [place] which showed normal EF and non obstructive CAD who came for evaluation of chest pain and LUE intermittent swelling. Serial troponins and ekg normal. As D Dimer was elevated, CT angio was done which revealed chronic thrombosis of Left UE thrombosis. Eliquis started as per cardio recommendations. He also complains of feeling weak and complains of dysuria. UA revealed large LE. Will start rocephin. Patient became very dizzy while walking which is most likely due to BPV. Will consult Neurlogist. Upon discharge patient will follow up with PMD of choice. Dr Lucía Rabago
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
[2017-01-02] MEDS ORDERED: Iohexol 350 MG/100 ML VIAL ONE (17:20)
--- NOTE | 2017-01-02 18:11 | CT ---
PROCEDURE: CT HEAD WITHOUT CONTRAST. HISTORY: Dizziness/vertigo COMPARISON: None available. TECHNIQUE: Axial computed tomography images were obtained through the head/brain without intravenous contrast. Radiation dose: Total exam DLP = 774.23 mGy-cm. This CT exam was performed using one or more of the following dose reduction techniques: Automated exposure control, adjustment of the mA and/or kV according to patient size, and/or use of iterative reconstruction technique. FINDINGS: HEMORRHAGE: No intracranial hemorrhage. BRAIN: No mass effect or edema. No atrophy or chronic microvascular ischemic changes. VENTRICLES: Unremarkable. No hydrocephalus. CALVARIUM: Unremarkable. PARANASAL SINUSES: Unremarkable as visualized. No significant inflammatory changes. MASTOID AIR CELLS: Unremarkable as visualized. No inflammatory changes. OTHER FINDINGS: None. IMPRESSION: No acute intracranial abnormalities. No significant findings to account for the clinical presentation.
[2017-01-03] MEDS: Oxycodone/Acetaminophen 10/325 mg Tab PO PRN ×4 (04:37→18:30)
[2017-01-03 07:22] LABS: HEMOGLOBIN 16.3 gm/dL (14.0-18.0); MEAN CELL VOLUME 94.5 fL (80.0-105.0); MEAN CORPUSCULAR HEMOGLOBIN 32.1 pg (25.0-35.0); MEAN PLATELET VOLUME 10.2 fl (7.0-11.0); RBC 5.08 10^6/uL (3.5-6.1); RED CELL DISTRIBUTION WIDTH 14.7 % (11.5-14.5); WHITE BLOOD COUNT 4.3 10^3/ul (4.5-11.0)
[2017-01-03 07:38] LABS: ALB/GLOB RATIO 0.9 (1.1-1.8); ALBUMIN 3.6 g/dL (3.0-4.8); ALT/SGPT 21 U/L (7-56); AST/SGOT 38 U/L (15-59); BLOOD UREA NITROGEN 17 mg/dL (7-21); CALCIUM 9.1 mg/dL (8.4-10.5); GFR AFRICAN-AMERICAN > 60; GFR NON-AFRICAN AMERICAN > 60
[2017-01-03] MEDS: cefTRIAXone 1 gm 1 GM/100 ML BAG IVPB SCH (09:24)
[2017-01-03] MEDS: Enoxaparin 80 mg Syringe SC SCH ×2 (10:27→21:19)
[2017-01-03] MEDS: Divalproex 500 mg DR(BID formulation) PO SCH ×2 (10:27→18:35)
[2017-01-03] MEDS ORDERED: POLYETHYLENE GLYCOL 3350 17 GM/Dose PACKET PO STA (11:03)
--- NOTE | 2017-01-03 12:43 | CT ---
PROCEDURE: CT Angiography of the neck with contrast HISTORY: vertigo, please include Aortic ARCH COMPARISON: None available. TECHNIQUE: Contiguous axial images of the neck were obtained from the level of the skull-base to the superior mediastinum in the arteriographic phase of enhancement. Coronal and sagittal reformats or also generated. IV contrast dose: 100 cc of Omni 350 Radiation Dose - DLP: 564 mGy-cm This CT exam was performed using one or more of the following dose reduction techniques: Automated exposure control, adjustment of the mA and/or kV according to patient size, and/or use of iterative reconstruction technique. FINDINGS: RIGHT CAROTID ARTERIES: Common Carotid Artery: Normal. Carotid Bifurcation: Normal. Internal Carotid Artery:Normal. External Carotid Artery (proximal branches): Normal. LEFT CAROTID ARTERIES: Common Carotid Artery: Normal. Carotid Bifurcation: Normal. Internal Carotid Artery:Calcified plaques are seen without significant stenosis External Carotid Artery (proximal branches): Normal. VERTEBRAL ARTERIES: Right Vertebral Artery: Normal. Left Vertebral Artery: Normal. OTHER FINDINGS: Extensive venous collaterals are seen in the left supraclavicular space. There is thrombosis of the left subclavian due to a left-sided pacemaker. The intracranial circulation is unremarkable. The report concurs with the preliminary [facility] report IMPRESSION: No significant stenosis in the carotid or vertebral vessels. 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
--- NOTE | 2017-01-03 16:15 | CP.PCM.PN ---
<Tunde Capellan - Last Filed: 01/03/17 16:16> Subjective - Date & Time of Evaluation Date of Evaluation: 01/03/17 Time of Evaluation: 16:13 - Subjective Subjective: Pt seen and examined at bedside. Overnight, patient states his chest pain remained the same. He also admits to dizziness when walking with physical therapy. Denies SOB, N/V/D, fevers, chills. Objective - Vital Signs/Intake and Output Vital Signs (last 24 hours): Temp Pulse Resp BP Pulse Ox 98 F 79 20 107/69 99 01/03/17 12:00 01/03/17 14:00 01/03/17 12:00 01/03/17 12:00 01/03/17 05:16 Intake and Output: 01/03/17 01/03/17 06:59 18:59 Intake Total 1380 120 Output Total 1300 300 Balance 80 -180 - Medications Medications: Current Medications Alprazolam (Xanax) 0.5 mg PO BID PRN; Protocol PRN Reason: Anxiety Last Admin: 01/03/17 11:38 Dose: 0.5 mg Amlodipine Besylate (Norvasc) 2.5 mg PO DAILY [facility] Last Admin: 01/03/17 10:34 Dose: Not Given Apixaban (Eliquis) 10 mg PO BID [facility] PRN Reason: Protocol Last Admin: 01/03/17 09:23 Dose: 10 mg Aspirin (Ecotrin) 81 mg PO DAILY [facility] Last Admin: 01/03/17 09:23 Dose: 81 mg Citalopram Hydrobromide (Celexa) 40 mg PO DAILY [facility] Last Admin: 01/03/17 09:23 Dose: 40 mg Clopidogrel Bisulfate (Plavix) 75 mg PO DAILY [facility] Last Admin: 01/03/17 09:23 Dose: 75 mg Diazepam (Valium) 2 mg PO BID PRN; Protocol PRN Reason: vertigo Last Admin: 01/03/17 09:23 Dose: 2 mg Divalproex Sodium (Depakote Dr(*Bid*)) 500 mg PO BID [facility] Last Admin: 01/03/17 10:27 Dose: 500 mg Enoxaparin Sodium (Lovenox) 80 mg SC Q12H [facility] PRN Reason: Protocol Last Admin: 01/03/17 10:27 Dose: 80 mg Gabapentin (Neurontin) 100 mg PO Q8H [facility] PRN Reason: Protocol Last Admin: 01/03/17 14:00 Dose: 100 mg Ceftriaxone Sodium (Rocephin 1 Gram Ivpb) 1 gm in 100 mls @ 100 mls/hr IVPB DAILY [facility] PRN Reason: Protocol Last Admin: 01/03/17 09:24 Dose: 100 mls/hr Metoprolol Tartrate (Lopressor) 25 mg PO BID [facility] Last Admin: 01/02/17 09:33 Dose: Not Given Oxycodone/Acetaminophen (Percocet 10/325 Mg Tab) 1 tab PO Q4H PRN PRN Reason: Pain, moderate (4-7) Last Admin: 01/03/17 13:59 Dose: 1 tab Pantoprazole Sodium (Protonix Inj) 40 mg IVP DAILY [facility] Last Admin: 01/03/17 09:24 Dose: 40 mg Quetiapine Fumarate (Seroquel) 50 mg PO HS [facility] PRN Reason: Protocol Last Admin: 01/02/17 21:20 Dose: 50 mg - Labs Labs: 01/03/17 06:20 01/03/17 06:20 PT 10.8 Seconds (9.9-11.8) 12/29/16 17:45 INR 1.00 (0.93-1.08) 12/29/16 17:45 APTT 29.4 Seconds (23.7-30.8) 12/29/16 17:45 - Constitutional Appears: Non-toxic, No Acute Distress - Head Exam Head Exam: ATRAUMATIC, NORMAL INSPECTION, NORMOCEPHALIC - Respiratory Exam Respiratory Exam: Clear to Ausculation Bilateral, NORMAL BREATHING PATTERN - Cardiovascular Exam Cardiovascular Exam: RRR, +S1, +S2 Additional comments: Left sided chest wall pain, nonreproducible to palpation - GI/Abdominal Exam GI & Abdominal Exam: Soft, Normal Bowel Sounds. absent: Tenderness - Extremities Exam Extremities Exam: Pedal Edema (Trace edema b/l). absent: Calf Tenderness - Neurological Exam Neurological Exam: Alert, Awake, Oriented x3 - Psychiatric Exam Psychiatric exam: Normal Affect, Normal Mood - Skin Skin Exam: Intact, Normal Color, Warm Assessment and Plan - Assessment and Plan (Free Text) Plan: 51 y/o M with PMH [place] x2, pacemaker, IVDA, and IVC filter presents with atypical chest pain and new onset vertigo. 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 Head CT showed no acute abnormalities. Pt currently being followed by neurology. Pt also unable to go home at this time due to severe dizziness and nystagmus when walking, according to physical therapy notes. 1. Vertigo Started on Valium Head and neck CTA negative Head CT negative Negative for orthostatics Await Neurology recs Failed PT Neurology consulted, Dr. Ag 2. Chest pain Troponins negative Chronic chest pain, remains unchanged Chronic left subclavian thrombus, patient started on Eliquis Echo showed LVEF within normal range, and mild pulmonary hypertension Continue current medications for pain control 3. UTI Rocephin Follow urine culture 4. Anxiety Continue Depakot, Seroquel and Celexa 5. PPX Protonix Lovenox Seen, reviewed, and discussed with attending Marilia, PGY-2 <Lucía Rabago B - Last Filed: 01/03/17 17:09> Objective - Vital Signs/Intake and Output Vital Signs (last 24 hours): Temp Pulse Resp BP Pulse Ox 98 F 79 20 107/69 99 01/03/17 12:00 01/03/17 14:00 01/03/17 12:00 01/03/17 12:00 01/03/17 05:16 Intake and Output: 01/03/17 01/03/17 06:59 18:59 Intake Total 1380 120 Output Total 1300 300 Balance 80 -180 - Medications Medications: Current Medications Alprazolam (Xanax) 0.5 mg PO BID PRN; Protocol PRN Reason: Anxiety Last Admin: 01/03/17 11:38 Dose: 0.5 mg Amlodipine Besylate (Norvasc) 2.5 mg PO DAILY [facility] Last Admin: 01/03/17 10:34 Dose: Not Given Apixaban (Eliquis) 10 mg PO BID [facility] PRN Reason: Protocol Last Admin: 01/03/17 09:23 Dose: 10 mg Aspirin (Ecotrin) 81 mg PO DAILY [facility] Last Admin: 01/03/17 09:23 Dose: 81 mg Citalopram Hydrobromide (Celexa) 40 mg PO DAILY [facility] Last Admin: 01/03/17 09:23 Dose: 40 mg Clopidogrel Bisulfate (Plavix) 75 mg PO DAILY [facility] Last Admin: 01/03/17 09:23 Dose: 75 mg Diazepam (Valium) 2 mg PO BID PRN; Protocol PRN Reason: vertigo Last Admin: 01/03/17 09:23 Dose: 2 mg Divalproex Sodium (Depakote Dr(*Bid*)) 500 mg PO BID [facility] Last Admin: 01/03/17 10:27 Dose: 500 mg Enoxaparin Sodium (Lovenox) 80 mg SC Q12H [facility] PRN Reason: Protocol Last Admin: 01/03/17 10:27 Dose: 80 mg Gabapentin (Neurontin) 100 mg PO Q8H [facility] PRN Reason: Protocol Last Admin: 01/03/17 14:00 Dose: 100 mg Ceftriaxone Sodium (Rocephin 1 Gram Ivpb) 1 gm in 100 mls @ 100 mls/hr IVPB DAILY [facility] PRN Reason: Protocol Last Admin: 01/03/17 09:24 Dose: 100 mls/hr Metoprolol Tartrate (Lopressor) 25 mg PO BID [facility] Last Admin: 01/02/17 09:33 Dose: Not Given Oxycodone/Acetaminophen (Percocet 10/325 Mg Tab) 1 tab PO Q4H PRN PRN Reason: Pain, moderate (4-7) Last Admin: 01/03/17 13:59 Dose: 1 tab Pantoprazole Sodium (Protonix Inj) 40 mg IVP DAILY [facility] Last Admin: 01/03/17 09:24 Dose: 40 mg Quetiapine Fumarate (Seroquel) 50 mg PO HS [facility] PRN Reason: Protocol Last Admin: 01/02/17 21:20 Dose: 50 mg - Labs Labs: 01/03/17 06:20 01/03/17 06:20 PT 10.8 Seconds (9.9-11.8) 12/29/16 17:45 INR 1.00 (0.93-1.08) 12/29/16 17:45 APTT 29.4 Seconds (23.7-30.8) 12/29/16 17:45 Attending/Attestation - Attestation I have personally seen and examined this patient.: Yes I have fully participated in the care of the patient.: Yes I have reviewed all pertinent clinical information, including history, physical exam and plan: Yes Notes (Text): I have seen and examined patient with the resident. Agree with the note dictated above with the following additions/ exceptions: Briefly this is 51 year old male with history of CAD s/p stent, PPM, [place] [facility] [place] which showed normal EF and non obstructive CAD who came for evaluation of chest pain and LUE intermittent swelling. Serial troponins and ekg normal. As DDimer was elevated CT angio was done which revealed chronic thrombosis of Left UE thrombosis. Eliquis started as per cardio recommendations. He also complains of generalized weakness and dizziness most likely due to BPV. Orthostatics negative. Neuro consult appreciated. CT angio brain and neck negative. Continue valium prn. Patient remains dizzy and unsteady and failed PT again today. Will stop antibiotics today as urine culture is negative. Upon discharge patient will follow up with PMD of choice. Dr Lucía Rabaog
[2017-01-03] MEDS ORDERED: Oxycodone/Acetaminophen 5/325 mg Tab PO STA (22:27)
[2017-01-04] MEDS: Pantoprazole 40 mg EC Tab PO SCH (06:08)
[2017-01-04] MEDS: Oxycodone/Acetaminophen 10/325 mg Tab PO PRN ×2 (06:14→22:15)
[2017-01-04] MEDS: Enoxaparin 80 mg Syringe SC SCH (07:59)
[2017-01-04 08:13] LABS: HEMOGLOBIN 16.6 gm/dL (14.0-18.0); MEAN CELL VOLUME 94.8 fL (80.0-105.0); MEAN CORPUSCULAR HEMOGLOBIN 31.8 pg (25.0-35.0); MEAN CORPUSCULAR HGB CONC 33.5 g/dl (31.0-37.0); MEAN PLATELET VOLUME 9.9 fl (7.0-11.0); RBC 5.22 10^6/uL (3.5-6.1); RED CELL DISTRIBUTION WIDTH 14.6 % (11.5-14.5); WHITE BLOOD COUNT 7.6 10^3/ul (4.5-11.0)
[2017-01-04 08:23] LABS: ALT/SGPT 31 U/L (7-56); AST/SGOT 51 U/L (15-59); BLOOD UREA NITROGEN 17 mg/dL (7-21); CALCIUM 9.5 mg/dL (8.4-10.5); GFR AFRICAN-AMERICAN > 60; GFR NON-AFRICAN AMERICAN > 60
[2017-01-04] MEDS: Divalproex 500 mg DR(BID formulation) PO SCH ×2 (10:32→18:06)
[2017-01-04] MEDS: Oxycodone/Acetaminophen 5/325 mg Tab PO PRN ×3 (11:06→18:56)
--- NOTE | 2017-01-04 17:41 | CP.PCM.PN ---
Subjective - Date & Time of Evaluation Date of Evaluation: 01/04/17 Time of Evaluation: 13:15 - Subjective Subjective: Patient was seen and examined bedside. Pt continues to complain about pain, and requests that his Percocet be returned to q4 due to continued pain. The pt denies new chest pain, palpitations, sob, n/v/d. pt complains of dizziness when physical therapy tried walking him. Objective - Vital Signs/Intake and Output Vital Signs (last 24 hours): Temp Pulse Resp BP Pulse Ox 97.8 F 75 20 103/67 99 01/04/17 08:08 01/04/17 10:00 01/04/17 08:08 01/04/17 10:32 01/04/17 08:08 Intake and Output: 01/04/17 01/04/17 06:59 18:59 Intake Total 0 Output Total 1100 Balance -1100 - Medications Medications: Current Medications Alprazolam (Xanax) 0.5 mg PO BID PRN; Protocol PRN Reason: Anxiety Last Admin: 01/04/17 07:58 Dose: 0.5 mg Amlodipine Besylate (Norvasc) 2.5 mg PO DAILY [facility] Last Admin: 01/04/17 10:32 Dose: 2.5 mg Apixaban (Eliquis) 10 mg PO BID [facility] PRN Reason: Protocol Last Admin: 01/04/17 10:32 Dose: 10 mg Aspirin (Ecotrin) 81 mg PO DAILY [facility] Last Admin: 01/04/17 10:31 Dose: 81 mg Citalopram Hydrobromide (Celexa) 40 mg PO DAILY [facility] Last Admin: 01/04/17 10:31 Dose: 40 mg Clopidogrel Bisulfate (Plavix) 75 mg PO DAILY [facility] Last Admin: 01/04/17 10:32 Dose: 75 mg Diazepam (Valium) 2 mg PO BID PRN; Protocol PRN Reason: vertigo Last Admin: 01/03/17 09:23 Dose: 2 mg Divalproex Sodium (Depakote Dr(*Bid*)) 500 mg PO BID [facility] Last Admin: 01/04/17 10:32 Dose: 500 mg Enoxaparin Sodium (Lovenox) 80 mg SC Q12H [facility] PRN Reason: Protocol Last Admin: 01/04/17 07:59 Dose: 80 mg Gabapentin (Neurontin) 100 mg PO Q8H [facility] PRN Reason: Protocol Last Admin: 01/04/17 14:06 Dose: 100 mg Meclizine HCl (Antivert) 25 mg PO TID [facility] Metoprolol Tartrate (Lopressor) 25 mg PO BID [facility] Last Admin: 01/02/17 09:33 Dose: Not Given Oxycodone/Acetaminophen (Percocet 10/325 Mg Tab) 1 tab PO Q8 PRN PRN Reason: Pain, severe (8-10) Last Admin: 01/04/17 06:14 Dose: 1 tab Oxycodone/Acetaminophen (Percocet 5/325 Mg Tab) 1 tab PO Q4H PRN PRN Reason: Pain, moderate (4-7) Stop: 01/07/17 10:53 Last Admin: 01/04/17 14:51 Dose: 1 tab Pantoprazole Sodium (Protonix Ec Tab) 40 mg PO 0600 [facility] Last Admin: 01/04/17 06:08 Dose: 40 mg Quetiapine Fumarate (Seroquel) 50 mg PO HS [facility] PRN Reason: Protocol Last Admin: 01/03/17 21:20 Dose: 50 mg - Labs Labs: 01/04/17 07:30 01/04/17 07:30 PT 10.8 Seconds (9.9-11.8) 12/29/16 17:45 INR 1.00 (0.93-1.08) 12/29/16 17:45 APTT 29.4 Seconds (23.7-30.8) 12/29/16 17:45 - Constitutional Appears: Well, No Acute Distress - Head Exam Head Exam: ATRAUMATIC, NORMAL INSPECTION, NORMOCEPHALIC - Eye Exam Eye Exam: EOMI, Normal appearance, PERRL - ENT Exam ENT Exam: Mucous Membranes Moist, Normal Exam - Respiratory Exam Respiratory Exam: Clear to Ausculation Bilateral, NORMAL BREATHING PATTERN. absent: Rales, Rhonchi, Wheezes, Respiratory Distress - Cardiovascular Exam Cardiovascular Exam: REGULAR RHYTHM, RRR, +S1, +S2. absent: Gallop, JVD, Rubs, Murmur - GI/Abdominal Exam GI & Abdominal Exam: Soft, Normal Bowel Sounds. absent: Distended, Tenderness - Neurological Exam Neurological Exam: Alert, Awake, Oriented x3 - Psychiatric Exam Psychiatric exam: Normal Affect, Normal Mood - Skin Skin Exam: Normal Color, Warm Assessment and Plan - Assessment and Plan (Free Text) Assessment: 51 y/o M with PMH [place] x2, pacemaker, IVDA, and IVC filter presents with atypical chest pain and new onset vertigo. 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 Head CT showed no acute abnormalities. Pt currently being followed by neurology. Pt also unable to go home at this time due to severe dizziness and nystagmus when walking, according to physical therapy notes. 1. Vertigo - Start on Meclizine 25mg TID - continue Valium - Failed PT, therapist states he notices nystagmus and dizziness on patient - ENT consulted, Dr. Bernal - Neurology consulted, Dr. Ag 2. Chest pain (Troponins negative) - Chronic chest pain, remains unchanged - Percocet q4 PRN 3. UTI resolved - no growth in cultures, pt afebrile and WBC WNL 4. Anxiety - Continue Depakot, Seroquel and Celexa 5. PPX - Protonix - Lovenox Seen, reviewed, and discussed with attending, Dr. Jessica Hart, PGY1
[2017-01-05] MEDS: Pantoprazole 40 mg EC Tab PO SCH (06:32)
[2017-01-05 07:39] LABS: HEMOGLOBIN 15.5 gm/dL (14.0-18.0); MEAN CELL VOLUME 94.3 fL (80.0-105.0); MEAN CORPUSCULAR HEMOGLOBIN 31.6 pg (25.0-35.0); MEAN CORPUSCULAR HGB CONC 33.5 g/dl (31.0-37.0); RBC 4.9 10^6/uL (3.5-6.1); RED CELL DISTRIBUTION WIDTH 14.5 % (11.5-14.5); WHITE BLOOD COUNT 4.9 10^3/ul (4.5-11.0)
[2017-01-05 07:55] LABS: ALBUMIN 3.8 g/dL (3.0-4.8); ALT/SGPT 37 U/L (7-56); AST/SGOT 43 U/L (15-59); BLOOD UREA NITROGEN 19 mg/dL (7-21); CALCIUM 9.1 mg/dL (8.4-10.5); GFR AFRICAN-AMERICAN > 60; GFR NON-AFRICAN AMERICAN > 60
[2017-01-05] MEDS: Oxycodone/Acetaminophen 10/325 mg Tab PO PRN ×3 (08:25→22:36)
[2017-01-05] MEDS: Divalproex 500 mg DR(BID formulation) PO SCH ×2 (09:48→17:58)
--- NOTE | 2017-01-05 16:02 | CP.PCM.PN ---
<JAMES FINE - Last Filed: 01/05/17 17:56> Subjective - Date & Time of Evaluation Date of Evaluation: 01/05/17 Time of Evaluation: 10:00 - Subjective Subjective: Patient was seen and examined bedside. Pt continues to complain about pain, and requests his Percocet after it being discontinued. The pt denies new chest pain , palpitations, sob, n/v/d. pt complains of dizziness and constipation. Objective - Vital Signs/Intake and Output Vital Signs (last 24 hours): Temp Pulse Resp BP Pulse Ox 98.8 F 69 20 103/69 98 01/04/17 16:00 01/05/17 09:49 01/05/17 06:00 01/05/17 09:49 01/05/17 06:00 Intake and Output: 01/05/17 01/05/17 06:59 18:59 Intake Total 960 680 Output Total 1000 Balance -40 680 - Medications Medications: Current Medications Acetaminophen (Tylenol 325mg Tab) 650 mg PO Q6H PRN PRN Reason: Fever >100.4 F Alprazolam (Xanax) 0.5 mg PO BID PRN; Protocol PRN Reason: Anxiety Last Admin: 01/05/17 09:58 Dose: 0.5 mg Amlodipine Besylate (Norvasc) 2.5 mg PO DAILY [facility] Last Admin: 01/05/17 09:49 Dose: Not Given Apixaban (Eliquis) 10 mg PO BID [facility] PRN Reason: Protocol Last Admin: 01/05/17 09:48 Dose: 10 mg Aspirin (Ecotrin) 81 mg PO DAILY [facility] Last Admin: 01/05/17 09:49 Dose: 81 mg Citalopram Hydrobromide (Celexa) 40 mg PO DAILY [facility] Last Admin: 01/05/17 09:48 Dose: 40 mg Clopidogrel Bisulfate (Plavix) 75 mg PO DAILY [facility] Last Admin: 01/05/17 09:48 Dose: 75 mg Diazepam (Valium) 2 mg PO BID PRN; Protocol PRN Reason: vertigo Last Admin: 01/03/17 09:23 Dose: 2 mg Divalproex Sodium (Depakote Dr(*Bid*)) 500 mg PO BID [facility] Last Admin: 01/05/17 09:48 Dose: 500 mg Gabapentin (Neurontin) 100 mg PO Q8H [facility] PRN Reason: Protocol Last Admin: 01/05/17 14:53 Dose: 100 mg Meclizine HCl (Antivert) 25 mg PO TID [facility] Last Admin: 01/05/17 14:53 Dose: 25 mg Metoprolol Tartrate (Lopressor) 25 mg PO BID [facility] Last Admin: 01/05/17 09:49 Dose: Not Given Pantoprazole Sodium (Protonix Ec Tab) 40 mg PO 0600 [facility] Last Admin: 01/05/17 06:32 Dose: 40 mg Quetiapine Fumarate (Seroquel) 50 mg PO HS [facility] PRN Reason: Protocol Last Admin: 01/04/17 22:16 Dose: 50 mg - Labs Labs: 01/05/17 07:00 01/05/17 07:00 PT 10.8 Seconds (9.9-11.8) 12/29/16 17:45 INR 1.00 (0.93-1.08) 12/29/16 17:45 APTT 29.4 Seconds (23.7-30.8) 12/29/16 17:45 - Additional Findings Additional findings: - Constitutional Appears: Well, No Acute Distress - Head Exam Head Exam: ATRAUMATIC, NORMAL INSPECTION, NORMOCEPHALIC - Eye Exam Eye Exam: EOMI, Normal appearance, PERRL - ENT Exam ENT Exam: Mucous Membranes Moist, Normal Exam - Respiratory Exam Respiratory Exam: Clear to Ausculation Bilateral, NORMAL BREATHING PATTERN. absent: Rales, Rhonchi, Wheezes, Respiratory Distress - Cardiovascular Exam Cardiovascular Exam: REGULAR RHYTHM, RRR, +S1, +S2. absent: Gallop, JVD, Rubs, Murmur - GI/Abdominal Exam GI & Abdominal Exam: Soft, Normal Bowel Sounds. absent: Distended, Tenderness - Neurological Exam Neurological Exam: Alert, Awake, Oriented x3 - Psychiatric Exam Psychiatric exam: Normal Affect, Normal Mood - Skin Skin Exam: Normal Color, Warm Assessment and Plan - Assessment and Plan (Free Text) Assessment: 51 y/o M with PMH [place] x2, pacemaker, IVDA, and IVC filter presents with atypical chest pain and new onset vertigo. 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 Head CT showed no acute abnormalities. Pt currently being followed by neurology.. 1. Vertigo - Start on Meclizine 25mg TID - continue Valium - Orthostatics done by Dr. Fine PGY1 layin/62, 74 bpm. sitting 105/68, 73bpm. standing 102/74, 99bpm. - Patient walked with PT on O2 and using cane. Vitals after were 102/67, 78bpm - Patient was removed off O2 and after 5 mins, 102/70, 82bpm, 96% SaO2 - ENT consulted, Dr. Bernal - Neurology consulted, Dr. Ag 2. Chest pain (Troponins negative) - Chronic chest pain, remains unchanged - Percocet q6 PRN (added as continued outpatient med prescribed by Dr. Pedro Pablo Alonzo at [facility], filled at [facility]) - continue Eliquis, ASA, Plavix 3. UTI resolved - no growth in cultures, pt afebrile and WBC WNL 4. Anxiety - Continue Xanax PRN, Depakot, Seroquel and Celexa 5. PPX - Protonix - Lovenox Seen, reviewed, and discussed with attending, Dr. Willem Fine, PGY1 <Cresencio Bangura - Last Filed: 01/05/17 20:50> Objective - Vital Signs/Intake and Output Vital Signs (last 24 hours): Temp Pulse Resp BP Pulse Ox 98.3 F 74 20 96/64 L 98 01/05/17 17:15 01/05/17 18:00 01/05/17 17:15 01/05/17 18:04 01/05/17 17:15 Intake and Output: 01/05/17 01/06/17 18:59 06:59 Intake Total 680 Balance 680 - Medications Medications: Current Medications Acetaminophen (Tylenol 325mg Tab) 650 mg PO Q6H PRN PRN Reason: Fever >100.4 F Alprazolam (Xanax) 0.5 mg PO BID PRN; Protocol PRN Reason: Anxiety Last Admin: 01/05/17 09:58 Dose: 0.5 mg Amlodipine Besylate (Norvasc) 2.5 mg PO DAILY [facility] Last Admin: 01/05/17 09:49 Dose: Not Given Apixaban (Eliquis) 10 mg PO BID [facility] PRN Reason: Protocol Last Admin: 01/05/17 17:58 Dose: 10 mg Aspirin (Ecotrin) 81 mg PO DAILY [facility] Last Admin: 01/05/17 09:49 Dose: 81 mg Citalopram Hydrobromide (Celexa) 40 mg PO DAILY [facility] Last Admin: 01/05/17 09:48 Dose: 40 mg Clopidogrel Bisulfate (Plavix) 75 mg PO DAILY [facility] Last Admin: 01/05/17 09:48 Dose: 75 mg Diazepam (Valium) 2 mg PO BID PRN; Protocol PRN Reason: vertigo Last Admin: 01/03/17 09:23 Dose: 2 mg Divalproex Sodium (Depakote Dr(*Bid*)) 500 mg PO BID [facility] Last Admin: 01/05/17 17:58 Dose: 500 mg Gabapentin (Neurontin) 100 mg PO Q8H [facility] PRN Reason: Protocol Last Admin: 01/05/17 14:53 Dose: 100 mg Meclizine HCl (Antivert) 25 mg PO TID [facility] Last Admin: 01/05/17 17:58 Dose: 25 mg Metoprolol Tartrate (Lopressor) 25 mg PO BID [facility] Last Admin: 01/05/17 18:04 Dose: Not Given Oxycodone/Acetaminophen (Percocet 10/325 Mg Tab) 1 tab PO Q6H PRN PRN Reason: Pain, moderate (4-7) Last Admin: 01/05/17 16:32 Dose: 1 tab Pantoprazole Sodium (Protonix Ec Tab) 40 mg PO 0600 [facility] Last Admin: 01/05/17 06:32 Dose: 40 mg Polyethylene Glycol (Miralax) 17 gm PO DAILY [facility] Quetiapine Fumarate (Seroquel) 50 mg PO HS [facility] PRN Reason: Protocol Last Admin: 01/04/17 22:16 Dose: 50 mg - Labs Labs: 01/05/17 07:00 01/05/17 07:00 PT 10.8 Seconds (9.9-11.8) 12/29/16 17:45 INR 1.00 (0.93-1.08) 12/29/16 17:45 APTT 29.4 Seconds (23.7-30.8) 12/29/16 17:45 Attending/Attestation - Attestation I have personally seen and examined this patient.: Yes I have fully participated in the care of the patient.: Yes I have reviewed all pertinent clinical information, including history, physical exam and plan: Yes Notes (Text): 01/05/17 20:48 patient seen and examined at bedside. labs, vitals and notes reviewed. Management discussed with ENT as well . PT notes reviewed, OOB to chair today and assisted device in use with ambulation. Patient denies any news complaints Agree with the plan of care outlined above by the resident and will confirm the indication of opiates for chronic angina( as per patient) with the patient's PMD and bee keeper.
[2017-01-05] MEDS ORDERED: POLYETHYLENE GLYCOL 3350 17 GM/Dose PACKET PO SCH (18:24)
[2017-01-06] MEDS: Oxycodone/Acetaminophen 10/325 mg Tab PO PRN ×3 (04:33→16:29)
[2017-01-06] MEDS: Pantoprazole 40 mg EC Tab PO SCH (06:18)
[2017-01-06 08:02] LABS: HEMOGLOBIN 15.5 gm/dL (14.0-18.0); MEAN CELL VOLUME 93.9 fL (80.0-105.0); MEAN CORPUSCULAR HEMOGLOBIN 31.8 pg (25.0-35.0); MEAN CORPUSCULAR HGB CONC 33.8 g/dl (31.0-37.0); MEAN PLATELET VOLUME 9.7 fl (7.0-11.0); RBC 4.88 10^6/uL (3.5-6.1); RED CELL DISTRIBUTION WIDTH 14.5 % (11.5-14.5); WHITE BLOOD COUNT 5.2 10^3/ul (4.5-11.0)
[2017-01-06 08:03] LABS: ALB/GLOB RATIO 1.1 (1.1-1.8); ALT/SGPT 30 U/L (7-56); AST/SGOT 45 U/L (15-59); BLOOD UREA NITROGEN 22 mg/dL (7-21); CALCIUM 9.3 mg/dL (8.4-10.5); GFR AFRICAN-AMERICAN > 60; GFR NON-AFRICAN AMERICAN > 60
--- NOTE | 2017-01-06 08:19 | CARD ---
APPROVED REPORT EKG Measurement Heart [id number] <Conclusion> Normal sinus rhythm Rightward axis PRWP LVH by voltage
[2017-01-06 09:00] VITALS: BP 102/57; RESP 18; TEMP 97.7; O2SAT 95
[2017-01-06] MEDS: Divalproex 500 mg DR(BID formulation) PO SCH (09:22)
--- NOTE | 2017-01-06 17:23 | CP.PCM.PCO ---
Physician Communication Note - Physician Communication Note Physician Communication Note: Tried to reach Dr. Alonzo @ [phone].phone rang w/o answer machine
[2017-01-06 17:24] VITALS: PULSE 87
--- NOTE | 2017-01-06 18:09 | CP.PCM.DIS ---
<JAMES FINE - Last Filed: 01/06/17 18:02> Provider - Provider Date of Admission: 12/31/16 12:09 Attending physician: Lucía Rabago MD Time Spent in preparation of Discharge (in minutes): 50 Hospital Course - Lab Results Lab Results: Micro Results 01/01/17 16:22 Urine Urine Culture - Final No Growth (<1,000 CFU/ML) Most Recent Lab Values WBC 5.2 10^3/ul (4.5-11.0) 01/06/17 07:00 RBC 4.88 10^6/uL (3.5-6.1) 01/06/17 07:00 Hgb 15.5 gm/dL (14.0-18.0) 01/06/17 07:00 Hct 45.8 % (42.0-52.0) 01/06/17 07:00 MCV 93.9 fL (80.0-105.0) 01/06/17 07:00 MCH 31.8 pg (25.0-35.0) 01/06/17 07:00 MCHC 33.8 g/dl (31.0-37.0) 01/06/17 07:00 RDW 14.5 % (11.5-14.5) 01/06/17 07:00 Plt Count 165 10^3/uL (120.0-450.0) 01/06/17 07:00 MPV 9.7 fl (7.0-11.0) 01/06/17 07:00 Gran % 31.9 % (50.0-68.0) L 12/31/16 07:15 Lymph % (Auto) 57.0 % (22.0-35.0) H 12/31/16 07:15 [place] % (Auto) 9.7 % (1.0-6.0) H 12/31/16 07:15 Eos % (Auto) 1.1 % (1.5-5.0) L 12/31/16 07:15 Baso % (Auto) 0.3 % (0.0-3.0) 12/31/16 07:15 Gran # 2.01 (1.4-6.5) 12/31/16 07:15 Lymph # 3.6 (1.2-3.4) H 12/31/16 07:15 [place] # 0.6 (0.1-0.6) 12/31/16 07:15 Eos # 0.1 (0.0-0.7) 12/31/16 07:15 Baso # 0.02 K/mm3 (0.0-2.0) 12/31/16 07:15 PT 10.8 Seconds (9.9-11.8) 12/29/16 17:45 INR 1.00 (0.93-1.08) 12/29/16 17:45 APTT 29.4 Seconds (23.7-30.8) 12/29/16 17:45 D-Dimer, Quantitative 0.55 mg/L FEU (0-0.50) H 12/31/16 13:59 Sodium 139 mmol/L (132-148) 01/06/17 07:00 Potassium 4.0 mmol/L (3.6-5.0) 01/06/17 07:00 Chloride 101 mmol/L (95-110) 01/06/17 07:00 Carbon Dioxide 28 mmol/L (21-33) 01/06/17 07:00 Anion Gap 14 (10-20) 01/06/17 07:00 BUN 22 mg/dL (7-21) H 01/06/17 07:00 Creatinine 0.7 mg/dL (0.5-1.4) 01/06/17 07:00 Est GFR ( Amer) > 60 01/06/17 07:00 Est GFR (Non-Af Amer) > 60 01/06/17 07:00 Random Glucose 90 mg/dL (70-110) 01/06/17 07:00 Hemoglobin A1c 5.8 % (4.2-6.5) 12/30/16 07:10 Calcium 9.3 mg/dL (8.4-10.5) 01/06/17 07:00 Phosphorus 3.3 mg/dL (2.5-4.5) 12/31/16 07:15 Magnesium 1.8 mg/dL (1.7-2.2) 12/31/16 07:15 Total Bilirubin 0.6 mg/dL (0.2-1.3) 01/06/17 07:00 AST 45 U/L (15-59) 01/06/17 07:00 ALT 30 U/L (7-56) 01/06/17 07:00 Alkaline Phosphatase 43 U/L (38-133) 01/06/17 07:00 Lactate Dehydrogenase 315 U/L (333-699) L 12/29/16 17:45 Total Creatine Kinase < 20 U/L (35-230) L 12/29/16 17:45 Troponin I < 0.01 ng/mL 12/30/16 16:05 Total Protein 7.7 g/dL (5.8-8.3) 01/06/17 07:00 Albumin 4.0 g/dL (3.0-4.8) 01/06/17 07:00 Globulin 3.8 gm/dL 01/06/17 07:00 Albumin/Globulin Ratio 1.1 (1.1-1.8) 01/06/17 07:00 Triglycerides 75 mg/dL (35-160) 12/30/16 07:10 Cholesterol 141 mg/dL (130-200) 12/30/16 07:10 LDL Cholesterol Direct 92 mg/dL (0-129) 12/30/16 07:10 HDL Cholesterol 33 mg/dL (29-60) 12/30/16 07:10 TSH 3rd Generation 0.7 MIU/ml (0.46-4.68) 12/30/16 07:10 Urine Color Yellow (YELLOW) 01/01/17 14:45 Urine Appearance Clear (CLEAR) 01/01/17 14:45 Urine pH 7.0 (4.7-8.0) 01/01/17 14:45 Ur Specific [place] 1.010 (1.005-1.035) 01/01/17 14:45 Urine Protein Negative mg/dL (<30 mg/dL) 01/01/17 14:45 Urine Glucose (UA) 100 mg/dL (NEGATIVE) H 01/01/17 14:45 Urine Ketones Negative mg/dL (NEGATIVE) 01/01/17 14:45 Urine Blood Small (NEGATIVE) H 01/01/17 14:45 Urine Nitrate Negative (NEGATIVE) 01/01/17 14:45 Urine Bilirubin Negative (NEGATIVE) 01/01/17 14:45 Urine Urobilinogen 0.2 E.U./dL (<1 E.U./dL) 01/01/17 14:45 Ur Leukocyte Esterase Large Carolyn/uL (NEGATIVE) H 01/01/17 14:45 Urine RBC 2 - 5 /hpf (0-2) 01/01/17 14:45 Urine WBC Tntc /hpf (0-6) 01/01/17 14:45 Urine Bacteria Occ (NEG) 01/01/17 14:45 Urine Opiates Screen Negative (NEGATIVE) 12/31/16 14:00 Urine Methadone Screen Negative (NEGATIVE) 12/31/16 14:00 Ur Barbiturates Screen Negative (NEGATIVE) 12/31/16 14:00 Ur Phencyclidine Scrn Negative (NEGATIVE) 12/31/16 14:00 Ur Amphetamines Screen Negative (NEGATIVE) 12/31/16 14:00 U Benzodiazepines Scrn Negative (NEGATIVE) 12/31/16 14:00 U Oth Cocaine Metabols Negative (NEGATIVE) 12/31/16 14:00 U Cannabinoids Screen Negative (NEGATIVE) 12/31/16 14:00 - Hospital Course Hospital Course: 51 y/o M with PMH [place] x2, pacemaker, IVDA, and IVC filter presents on 12/29 c/o left sided chest pain radiating to the left arm and neck a/w palpitation and shortness of breath. Pt took 3 nitro SL and 2 ASA 81mg with minimal relief. In ED, EKG showed NSR with LVH and rightward axis. CXR showed no active disease. Troponins were negative x3. Patient was transferred to telemetry floor for close monitoring. Cardiology was consulted. Pt stated that he had a recent cath at [facility] and the report was requested. Patient states that the pain he is experiencing is chronic, and that he is prescribed Percocet 10 for it by his Scout Leaser/PMD Dr. Pedro Pablo Alonzo in [facility]. The information was confirmed by the pharmacist at "[facility]" @ [address] [place] [address] where the pt fills his prescriptions. the patient also complained of a R inguinal hernia, that was reducible. UA+ and pt was started on Rocephin. A CT on 01/01 showed no central pulm emboli, but was positive for chronic thrombosis of L subclavian vein with extensive collateral circulation. Pt was hypotensive nad began complaining of dizziness. Echo was done on 01/02 showing a normal size LV with normal LVEF and mild pulmonary hypertension. CT Head was ordered and showed no acute intracranial abnormalities. Neurology and ENT were consulted. CTA head and neck were done 01/02 showing no significant stenosis in carotid or vertebral vessels. Patient failed physical therapy eval. Meclizine was started on 01/04 for vertigo. 01/05 Orthostatics were done and were negative, physical therapy walked with the patient with a cane for assistance, and the patient showed improvement and stability, and his vitals were stable throughout and after. Patient was taken off O2 NC, and saturation was maintained. This morning, the patient had no complaints and denied any chest pain, palpitations, sob, n/v/d, headaches, changes in vision, fevers, or night chills. An attempt was made to reach Dr. Alonzo to obtain pt's chart but we were unsuccessful. - Date & Time of H&P Date of H&P: 12/30/16 Time of H&P: 06:30 Discharge Exam - Head Exam Head Exam: ATRAUMATIC, NORMAL INSPECTION, NORMOCEPHALIC - Eye Exam Eye Exam: EOMI, Normal appearance, PERRL - ENT Exam ENT Exam: Mucous Membranes Moist, Normal Exam - Respiratory Exam Respiratory Exam: Clear to PA & Lateral, NORMAL BREATHING PATTERN, UNREMARKABLE. absent: Chest Wall Tenderness, Rales, Rhonchi, Wheezes, Respiratory Distress, Stridor - Cardiovascular Exam Cardiovascular Exam: REGULAR RHYTHM, RRR, +S1, +S2. absent: JVD, Systolic Murmur - GI/Abdominal Exam GI & Abdominal Exam: Normal Bowel Sounds, Soft. absent: Distended, Tenderness - Neurological Exam Neurological exam: Alert, Oriented x3 - Psychiatric Exam Psychiatric exam: Normal Affect, Normal Mood - Skin Skin Exam: Normal Color, Warm Discharge Plan - Discharge Medications Prescriptions: amLODIPine [Norvasc] 2.5 mg PO DAILY #7 Aspirin [Ecotrin] 81 mg PO DAILY #7 Clopidogrel [Plavix] 75 mg PO DAILY #7 tab Divalproex [Depakote DR(*BID*)] 500 mg PO BID #14 tcp Meclizine [Antivert] 25 mg PO TID PRN #90 tab PRN Reason: Dizziness QUEtiapine [Seroquel] 50 mg PO HS #7 tab - Follow Up Plan Condition: GOOD Disposition: HOME/ ROUTINE Instructions: Chest Pain (DC), Vertigo (DC) Additional Instructions: 1. Please follow up with your Scout Leaser (Dr. Pedro Pablo Alonzo, [place], [place]) within 4-[address] Alonzo fax over a copy of your records ( ), as we have been unable to contact him. 2. Please follow up with your PMD within 1 week of discharge 3. Continue to use your cane as needed for support when ambulating. Minimize risk of falls as best as possible. Should you experience any falls where you strike your head, you should return to the hospital for evaluation. 4. 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 From medical point of view, the RISK OF BLEEDING OUTWEIGHS THE BENEFIT of anticoagulation provided by Eliquis. Further anticoagulation or decision to continue to not anticoagulate should be made by your Scout Leaser, Dr. Alonzo. 5. Please fill and take all medications as prescribed (Percocet and Antivert) 6. If you experience worsening or new concerning symptoms, please return to the hospital immediately <Cresencio Bangura - Last Filed: 01/06/17 19:00> Provider - Provider Date of Admission: 12/31/16 12:09 Attending physician: Lucía Rabago MD Hospital Course - Lab Results Lab Results: Micro Results 01/01/17 16:22 Urine Urine Culture - Final No Growth (<1,000 CFU/ML) Most Recent Lab Values WBC 5.2 10^3/ul (4.5-11.0) 01/06/17 07:00 RBC 4.88 10^6/uL (3.5-6.1) 01/06/17 07:00 Hgb 15.5 gm/dL (14.0-18.0) 01/06/17 07:00 Hct 45.8 % (42.0-52.0) 01/06/17 07:00 MCV 93.9 fL (80.0-105.0) 01/06/17 07:00 MCH 31.8 pg (25.0-35.0) 01/06/17 07:00 MCHC 33.8 g/dl (31.0-37.0) 01/06/17 07:00 RDW 14.5 % (11.5-14.5) 01/06/17 07:00 Plt Count 165 10^3/uL (120.0-450.0) 01/06/17 07:00 MPV 9.7 fl (7.0-11.0) 01/06/17 07:00 Gran % 31.9 % (50.0-68.0) L 12/31/16 07:15 Lymph % (Auto) 57.0 % (22.0-35.0) H 12/31/16 07:15 [place] % (Auto) 9.7 % (1.0-6.0) H 12/31/16 07:15 Eos % (Auto) 1.1 % (1.5-5.0) L 12/31/16 07:15 Baso % (Auto) 0.3 % (0.0-3.0) 12/31/16 07:15 Gran # 2.01 (1.4-6.5) 12/31/16 07:15 Lymph # 3.6 (1.2-3.4) H 12/31/16 07:15 [place] # 0.6 (0.1-0.6) 12/31/16 07:15 Eos # 0.1 (0.0-0.7) 12/31/16 07:15 Baso # 0.02 K/mm3 (0.0-2.0) 12/31/16 07:15 PT 10.8 Seconds (9.9-11.8) 12/29/16 17:45 INR 1.00 (0.93-1.08) 12/29/16 17:45 APTT 29.4 Seconds (23.7-30.8) 12/29/16 17:45 D-Dimer, Quantitative 0.55 mg/L FEU (0-0.50) H 12/31/16 13:59 Sodium 139 mmol/L (132-148) 01/06/17 07:00 Potassium 4.0 mmol/L (3.6-5.0) 01/06/17 07:00 Chloride 101 mmol/L (95-110) 01/06/17 07:00 Carbon Dioxide 28 mmol/L (21-33) 01/06/17 07:00 Anion Gap 14 (10-20) 01/06/17 07:00 BUN 22 mg/dL (7-21) H 01/06/17 07:00 Creatinine 0.7 mg/dL (0.5-1.4) 01/06/17 07:00 Est GFR ( Amer) > 60 01/06/17 07:00 Est GFR (Non-Af Amer) > 60 01/06/17 07:00 Random Glucose 90 mg/dL (70-110) 01/06/17 07:00 Hemoglobin A1c 5.8 % (4.2-6.5) 12/30/16 07:10 Calcium 9.3 mg/dL (8.4-10.5) 01/06/17 07:00 Phosphorus 3.3 mg/dL (2.5-4.5) 12/31/16 07:15 Magnesium 1.8 mg/dL (1.7-2.2) 12/31/16 07:15 Total Bilirubin 0.6 mg/dL (0.2-1.3) 01/06/17 07:00 AST 45 U/L (15-59) 01/06/17 07:00 ALT 30 U/L (7-56) 01/06/17 07:00 Alkaline Phosphatase 43 U/L (38-133) 01/06/17 07:00 Lactate Dehydrogenase 315 U/L (333-699) L 12/29/16 17:45 Total Creatine Kinase < 20 U/L (35-230) L 12/29/16 17:45 Troponin I < 0.01 ng/mL 12/30/16 16:05 Total Protein 7.7 g/dL (5.8-8.3) 01/06/17 07:00 Albumin 4.0 g/dL (3.0-4.8) 01/06/17 07:00 Globulin 3.8 gm/dL 01/06/17 07:00 Albumin/Globulin Ratio 1.1 (1.1-1.8) 01/06/17 07:00 Triglycerides 75 mg/dL (35-160) 12/30/16 07:10 Cholesterol 141 mg/dL (130-200) 12/30/16 07:10 LDL Cholesterol Direct 92 mg/dL (0-129) 12/30/16 07:10 HDL Cholesterol 33 mg/dL (29-60) 12/30/16 07:10 TSH 3rd Generation 0.7 MIU/ml (0.46-4.68) 12/30/16 07:10 Urine Color Yellow (YELLOW) 01/01/17 14:45 Urine Appearance Clear (CLEAR) 01/01/17 14:45 Urine pH 7.0 (4.7-8.0) 01/01/17 14:45 Ur Specific [place] 1.010 (1.005-1.035) 01/01/17 14:45 Urine Protein Negative mg/dL (<30 mg/dL) 01/01/17 14:45 Urine Glucose (UA) 100 mg/dL (NEGATIVE) H 01/01/17 14:45 Urine Ketones Negative mg/dL (NEGATIVE) 01/01/17 14:45 Urine Blood Small (NEGATIVE) H 01/01/17 14:45 Urine Nitrate Negative (NEGATIVE) 01/01/17 14:45 Urine Bilirubin Negative (NEGATIVE) 01/01/17 14:45 Urine Urobilinogen 0.2 E.U./dL (<1 E.U./dL) 01/01/17 14:45 Ur Leukocyte Esterase Large Carolyn/uL (NEGATIVE) H 01/01/17 14:45 Urine RBC 2 - 5 /hpf (0-2) 01/01/17 14:45 Urine WBC Tntc /hpf (0-6) 01/01/17 14:45 Urine Bacteria Occ (NEG) 01/01/17 14:45 Urine Opiates Screen Negative (NEGATIVE) 12/31/16 14:00 Urine Methadone Screen Negative (NEGATIVE) 12/31/16 14:00 Ur Barbiturates Screen Negative (NEGATIVE) 12/31/16 14:00 Ur Phencyclidine Scrn Negative (NEGATIVE) 12/31/16 14:00 Ur Amphetamines Screen Negative (NEGATIVE) 12/31/16 14:00 U Benzodiazepines Scrn Negative (NEGATIVE) 12/31/16 14:00 U Oth Cocaine Metabols Negative (NEGATIVE) 12/31/16 14:00 U Cannabinoids Screen Negative (NEGATIVE) 12/31/16 14:00 Attending/Attestation - Attestation I have personally seen and examined this patient.: Yes I have fully participated in the care of the patient.: Yes I have reviewed all pertinent clinical information, including history, physical exam and plan: Yes Notes (Text): 01/06/17 18:54 Patient seen and examined at bedside. Denies any new complaints. labs, vitals and notes reviewed. PT notes reviewed. Patient reports feeling significantly better and improvement in his dizziness. 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 Also advised to continue the ENT recommended exercises and use prn antevert. Fall precautions reinforced.
== END 2017-01-06 18:10 | disposition home or self-care (01) | DRG 132 ==
LOC: ED 21:05 → ERH 21:22 → 2RNO 12-30 01:10 → OBSVTOIN 12-31 12:09 → 2RNO 01-03 12:26 → 3RNO 01-03 18:53
PROVIDERS: ADMIT Internal Medicine; ATTEND Hospitalist
DX: I25.119 Atherosclerotic heart disease of native coronary artery with unspecified angina pectoris (principal); I11.0 Hypertensive heart disease with heart failure; I27.2 Other secondary pulmonary hypertension; I95.9 Hypotension, unspecified; I50.9 Heart failure, unspecified; I82.B22 Chronic embolism and thrombosis of left subclavian vein; N39.0 Urinary tract infection, site not specified; H81.10 Benign paroxysmal vertigo, unspecified ear; F41.9 Anxiety disorder, unspecified; K40.90 Unilateral inguinal hernia, without obstruction or gangrene, not specified as recurrent; E78.5 Hyperlipidemia, unspecified; K59.00 Constipation, unspecified; R07.89 Other chest pain; I25.2 Old myocardial infarction; Z95.0 Presence of cardiac pacemaker; Z95.5 Presence of coronary angioplasty implant and graft; Z79.82 Long term (current) use of aspirin; Z87.891 Personal history of nicotine dependence

== ENCOUNTER 2017-01-09 22:46 | Inpatient (IN) | payer MEDICAID ==
[2017-01-09 22:55] VITALS: BMI 26.6
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
[2017-01-10 00:01] LABS: HEMOGLOBIN 13.7 gm/dL (14.0-18.0); MEAN CELL VOLUME 92.2 fL (80.0-105.0); MEAN CORPUSCULAR HEMOGLOBIN 32.3 pg (25.0-35.0); MEAN PLATELET VOLUME 10.2 fl (7.0-11.0); RBC 4.24 10^6/uL (3.5-6.1); RED CELL DISTRIBUTION WIDTH 14.5 % (11.5-14.5)
[2017-01-10 00:08] LABS: ALBUMIN 3.9 g/dL (3.0-4.8); ALT/SGPT 29 U/L (7-56); AST/SGOT 46 U/L (15-59); BLOOD UREA NITROGEN 27 mg/dL (7-21); CALCIUM 9.2 mg/dL (8.4-10.5); GFR AFRICAN-AMERICAN > 60; GFR NON-AFRICAN AMERICAN > 60
[2017-01-10 00:09] LABS: PARTIAL THROMBOPLASTIN TIME 30.1 Seconds (23.7-30.8); PROTHROMBIN TIME 10.8 Seconds (9.9-11.8)
[2017-01-10 00:21] LABS: TROPONIN I < 0.01 ng/mL
[2017-01-10] MEDS ORDERED: Sodium Chloride 0.9% 1,000 ML IV SCH (01:30)
[2017-01-10 02:15] LABS: MAGNESIUM 2.3 mg/dL (1.7-2.2)
--- NOTE | 2017-01-10 02:48 | CT ---
EXAM: CT Head Without Intravenous Contrast CLINICAL HISTORY: 51 years old, male; Signs and symptoms; Syncope and collapse; Additional info: Headache TECHNIQUE: Axial computed tomography images of the head/brain without intravenous contrast. This CT exam was performed using one or more of the following dose reduction techniques: automated exposure control, adjustment of the mA and/or kV according to patient size, and/or use of iterative reconstruction technique. EXAM DATE/TIME: 01/10/2017 1:17 AM COMPARISON: CT - HEAD W/O CONTRAST 01/02/2017 5:29:40 PM FINDINGS: No intracranial hemorrhage. No intracranial edema. No evidence of infarct. The sinuses and mastoid air cells are clear. IMPRESSION: No acute findings.
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
--- NOTE | 2017-01-10 07:34 | RAD ---
HISTORY: pain COMPARISON: 12/29/2016 FINDINGS: LUNGS: No active pulmonary disease. PLEURA: No significant pleural effusion identified, no pneumothorax apparent. CARDIOVASCULAR: Permanent pacemaker. Unchanged in position. OSSEOUS STRUCTURES: A amorphous calcifications seen about right glenohumeral articulation, unchanged. Uncertain significance. Possible myositis ossificans. Possible intracapsular calcifications. VISUALIZED UPPER ABDOMEN: Normal. OTHER FINDINGS: None. IMPRESSION: No active disease.
[2017-01-10 07:52] LABS: ALBUMIN 3.7 g/dL (3.0-4.8); ALT/SGPT 28 U/L (7-56); AST/SGOT 39 U/L (15-59); BLOOD UREA NITROGEN 26 mg/dL (7-21); CALCIUM 8.6 mg/dL (8.4-10.5); GFR AFRICAN-AMERICAN > 60; GFR NON-AFRICAN AMERICAN > 60
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
[2017-01-10 08:06] LABS: TROPONIN I < 0.01 ng/mL
[2017-01-10 09:25] LABS: BARBITURATES, UR NEGATIVE (NEGATIVE); BENZODIAZEPINES, UR POSITIVE (NEGATIVE); OPIATES, UR POSITIVE (NEGATIVE); PHENCYCLIDINE, UR NEGATIVE (NEGATIVE)
[2017-01-10 09:57] LABS: HEMOGLOBIN 13.9 gm/dL (14.0-18.0); MEAN CELL VOLUME 93.8 fL (80.0-105.0); MEAN CORPUSCULAR HEMOGLOBIN 31.8 pg (25.0-35.0); MEAN CORPUSCULAR HGB CONC 33.9 g/dl (31.0-37.0); PLATELET COUNT 160 10^3/uL (120.0-450.0); RBC 4.37 10^6/uL (3.5-6.1); RED CELL DISTRIBUTION WIDTH 14.5 % (11.5-14.5); WHITE BLOOD COUNT 11.7 10^3/ul (4.5-11.0)
[2017-01-10 10:44] LABS: ATYPICAL LYMPHOCYTE 0 % (0.0-0.0); BAND 0 % (0-2); EOSINOPHIL 2 % (0.0-3.0); LYMPHOCYTE 68 % (22.0-35.0); MONOCYTE 10 % (1.0-6.0); NEUTROPHIL 20 % (50.0-70.0)
[2017-01-10 10:45] LABS: PLATELET ESTIMATE NORMAL (NORMAL)
--- NOTE | 2017-01-10 10:50 | CARD ---
APPROVED REPORT EKG Measurement Heart [id number] ID [id number] <Conclusion> Normal sinus rhythm Possible Left atrial enlargement Borderline ECG
[2017-01-10 14:21] LABS: TROPONIN I < 0.01 ng/mL
[2017-01-10] MEDS: Oxycodone/Acetaminophen 10/325 mg Tab PO PRN ×2 (15:25→21:31)
[2017-01-10 22:15] LABS: TROPONIN I < 0.01 ng/mL
[2017-01-11] MEDS: Oxycodone/Acetaminophen 10/325 mg Tab PO PRN ×4 (05:48→23:57)
[2017-01-11 06:36] LABS: BLOOD UREA NITROGEN 14 mg/dL (7-21); CALCIUM 9.1 mg/dL (8.4-10.5); GFR AFRICAN-AMERICAN > 60; GFR NON-AFRICAN AMERICAN > 60
[2017-01-11 07:40] LABS: HEMOGLOBIN 14.7 gm/dL (14.0-18.0); MEAN CELL VOLUME 92.7 fL (80.0-105.0); MEAN CORPUSCULAR HEMOGLOBIN 31.5 pg (25.0-35.0); MEAN PLATELET VOLUME 10.9 fl (7.0-11.0); PLATELET COUNT 168 10^3/uL (120.0-450.0); RBC 4.66 10^6/uL (3.5-6.1); RED CELL DISTRIBUTION WIDTH 14.5 % (11.5-14.5); WHITE BLOOD COUNT 5.9 10^3/ul (4.5-11.0)
[2017-01-11 08:49] LABS: ATYPICAL LYMPHOCYTE 3 % (0.0-0.0); EOSINOPHIL 1 % (0.0-3.0); LYMPHOCYTE 55 % (22.0-35.0); MONOCYTE 8 % (1.0-6.0); NEUTROPHIL 33 % (50.0-70.0)
[2017-01-11 09:03] LABS: PH,URINE 6.5 (4.7-8.0); URINE BILIRUBIN NEGATIVE (NEGATIVE); URINE BLOOD NEGATIVE (NEGATIVE); URINE GLUCOSE (UA) NEGATIVE (NEGATIVE); URINE LEUKOCYTE ESTERASE NEGATIVE Leu/uL (NEGATIVE); URINE NITRATE NEGATIVE (NEGATIVE); URINE PROTEIN NEGATIVE mg/dL (<30 mg/dL); URINE UROBILINOGEN 0.2 E.U./dL (<1 E.U./dL)
[2017-01-11 09:06] LABS: URINE APPEARANCE CLEAR (CLEAR); URINE COLOR YELLOW (YELLOW)
--- NOTE | 2017-01-11 17:01 | CP.PCM.PN ---
<JAMES FINE - Last Filed: 01/11/17 16:58> Subjective - Date & Time of Evaluation Date of Evaluation: 01/11/17 Time of Evaluation: 09:10 - Subjective Subjective: patient was seen and examined bedside. pt complaining of old chest pain, and headache as well as ringing in ears. pt states that he feels unsteady on his feet and that he almost fell when he was walking to the bathroom. Pt had a BM. Expresses interest in going to rehab after discharge. Denies sob, n/v/d, fevers , palpitations. Objective - Vital Signs/Intake and Output Vital Signs (last 24 hours): Temp Pulse Resp BP Pulse Ox 98.3 F 60 20 145/91 H 100 01/11/17 12:00 01/11/17 14:00 01/11/17 12:00 01/11/17 12:00 01/11/17 06:00 Intake and Output: 01/11/17 01/11/17 06:59 18:59 Intake Total 720 480 Output Total 3400 600 Balance -2680 -120 - Medications Medications: Current Medications Acetaminophen (Tylenol 325mg Tab) 650 mg PO Q4H PRN PRN Reason: Headache Last Admin: 01/10/17 06:48 Dose: 650 mg Amlodipine Besylate (Norvasc) 2.5 mg PO DAILY [facility] Last Admin: 01/11/17 10:20 Dose: 2.5 mg Aspirin (Ecotrin) 81 mg PO DAILY [facility] Last Admin: 01/11/17 10:19 Dose: 81 mg Atorvastatin Calcium (Lipitor) 40 mg PO DIN [facility] Last Admin: 01/10/17 17:46 Dose: 40 mg Clopidogrel Bisulfate (Plavix) 75 mg PO DAILY [facility] Last Admin: 01/11/17 10:19 Dose: 75 mg Diazepam (Valium) 5 mg PO BID [facility] PRN Reason: Protocol Last Admin: 01/11/17 10:20 Dose: 5 mg Famotidine (Pepcid) 20 mg PO BID [facility] Last Admin: 01/11/17 10:19 Dose: 20 mg Heparin Sodium (Porcine) (Heparin) 5,000 units SC Q12 [facility] PRN Reason: Protocol Last Admin: 01/11/17 10:21 Dose: 5,000 units Sodium Chloride (Sodium Chloride 0.9%) 1,000 mls @ 100 mls/hr IV .Q10H [facility] Last Admin: 01/10/17 01:51 Dose: 100 mls/hr Ibuprofen (Motrin Tab) 600 mg PO Q6H PRN PRN Reason: Pain, moderate (4-7) Ketorolac Tromethamine (Toradol) 60 mg IM Q8H PRN PRN Reason: Pain, severe (8-10) Stop: 01/15/17 14:28 Meclizine HCl (Antivert) 25 mg PO BID [facility] Nitroglycerin (Nitrostat Sl Tab) 0.4 mg SL Q5M PRN PRN Reason: chest pain Last Admin: 01/10/17 02:21 Dose: 0.4 mg Ondansetron HCl (Zofran Inj) 4 mg IVP Q6H PRN PRN Reason: Pain, moderate (4-7) Oxycodone/Acetaminophen (Percocet 10/325 Mg Tab) 1 tab PO Q6H PRN PRN Reason: Pain, severe (8-10) Last Admin: 01/11/17 12:09 Dose: 1 tab Quetiapine Fumarate (Seroquel) 25 mg PO HS [facility] PRN Reason: Protocol Last Admin: 01/10/17 21:30 Dose: 25 mg - Labs Labs: 01/11/17 06:00 01/11/17 05:40 PT 10.8 Seconds (9.9-11.8) 01/09/17 23:41 INR 1.00 (0.93-1.08) 01/09/17 23:41 APTT 30.1 Seconds (23.7-30.8) 01/09/17 23:41 - Constitutional Appears: Well, No Acute Distress - Head Exam Head Exam: ATRAUMATIC, NORMOCEPHALIC - Eye Exam Eye Exam: EOMI, Normal appearance Pupil Exam: PERRL - ENT Exam ENT Exam: Mucous Membranes Moist, Normal Exam - Respiratory Exam Respiratory Exam: Clear to Ausculation Bilateral, NORMAL BREATHING PATTERN. absent: Accessory Muscle Use, Chest Wall Tenderness, Rales, Rhonchi, Wheezes, Respiratory Distress - Cardiovascular Exam Cardiovascular Exam: RRR, +S1, +S2. absent: Gallop, JVD, Rubs, Murmur - GI/Abdominal Exam GI & Abdominal Exam: Soft, Normal Bowel Sounds. absent: Distended, Tenderness - Extremities Exam Extremities Exam: absent: Tenderness - Neurological Exam Neurological Exam: Alert, Awake, Oriented x3 - Psychiatric Exam Psychiatric exam: Normal Affect, Normal Mood - Skin Skin Exam: Normal Color, Warm Additional comments: track millan noted on L antecubital region Assessment and Plan - Assessment and Plan (Free Text) Plan: 51 year old male with PMHx CAD s/p stents, [place], HTN, HLD, anxiety, bipolar disorder, schizophrenia who presented to the ED complaining of chest pain. Patient reports multiple syncopal episodes at the time of admission. on admission, Utox was +cocaine, benzos and opiates. Unsteady gait and syncope - Neurology recommends vestibular therapy - cont Valium 5mg BID per Neuro - cont Meclizine 25 BID, Zofran 4mg PRN - Neurology consulted, Dr. Lewis - PT eval: pt can benefit from inpatient rehab for balance/gait training and to address vestibular dysfxn; high fall risk Chest pain (Troponins negative) - Chronic chest pain, remains unchanged - Percocet q6 PRN, motrin q6 PRN, toradol 60 Q8 - cardio consulted, recs appreciated Anxiety - Continue Seroquel Pepcid/Heparin Dispo: Accepted into [facility], but insurance has not yet authorized. F/U Saturday with case management social worker Patient was seen, reviewed, and discussed with attending, Dr. Hima Fine, PGY1 <Lucía Rabago - Last Filed: 01/16/17 15:46> Objective - Vital Signs/Intake and Output Vital Signs (last 24 hours): Temp Pulse Resp BP Pulse Ox 98.4 F 82 20 124/85 98 01/14/17 16:00 01/14/17 16:00 01/14/17 16:00 01/14/17 16:00 01/14/17 16:00 - Labs Labs: 01/14/17 06:35 01/14/17 06:35 PT 10.8 Seconds (9.9-11.8) 01/09/17 23:41 INR 1.00 (0.93-1.08) 01/09/17 23:41 APTT 30.1 Seconds (23.7-30.8) 01/09/17 23:41 Attending/Attestation - Attestation I have personally seen and examined this patient.: Yes I have fully participated in the care of the patient.: Yes I have reviewed all pertinent clinical information, including history, physical exam and plan: Yes Notes (Text): I have seen and examined the patient at bedside. Agree with the above note with the following additions/ exceptions: Briefly this is 51 year old male with history of CAD s/p stents, [place], HTN, HLD, anxiety, bipolar disorder, schizophrenia, cocaine and opiate use who presented for eval of chest pain, headache and dizziness.Neuro eval appreciated and they recommended vestibular therapy, valium and meclizine. PT recommended JUWAN. ACS ruled out. Upon discharge patient will follow up with Dr English. Dr Lucía Rabago
[2017-01-11] MEDS ORDERED: Lidocaine 2% Viscous 100 ml PO PRN (17:32)
--- NOTE | 2017-01-11 20:26 | CON ---
CARDIOLOGY CONSULTATION REASON FOR CONSULTATION: Dizziness and fainting more than once. HISTORY OF PRESENT ILLNESS: The patient is a 51-year-old male, who had a history of permanent pacemaker placement, history of coronary artery disease, most recent cardiac catheterization was performed at [facility] in 07/23/2016, which revealed 50% ostial first diagonal branch as well as 40% right coronary artery stenosis and the patient was recently admitted because of chest pain. CT angiogram of the chest was negative for pulmonary embolism. 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 The patient during this admission found that he was positive for opiates, cocaine and benzodiazepines. MEDICATIONS: Heparin 5000 units subcutaneous twice a day, Lipitor 40 mg once a day, Norvasc 2.5 mg once a day, Plavix 75 mg once a day. REVIEW OF SYSTEMS: No fever or chills. No vomiting. No diarrhea. PHYSICAL EXAMINATION General: The patient is a middle-aged male, who does not appear to be in any distress. Vital Signs: Blood pressure 122/85, hear rate 62, temperature 98.1, respiration 20. HEENT: Normocephalic. Chest: Clear. Heart: Sounds regular. Extremities: No edema. LABORATORY DATA: Hemoglobin and hematocrit 15.9 and 41.0, white count and platelet count 11.7 and 160,000. Today's measurement is within normal limit except for BUN of 26 and glucose of 69. Three sets of troponins are negative. Head CT scan without contrast, no acute findings. The patient's echo report from the last admission revealed normal left ventricular size and mild concentric LVH with normal systolic function and mild pulmonary hypertension. A 12-lead EKG revealed sinus rhythm, possible left atrial enlargement. ASSESSMENT: 1. Status post multiple drug abuse including cocaine, opiates and benzodiazepines. 2. Bipolar disorder. 3. Atrial fib and pacemaker placement. However, the patient has his own sinus rhythm at this time. 4. History of coronary artery disease. The patient's most recent cardiac catheterization in July of this year revealed no significant disease. CONDITIONS: Continue on current medical management including Norvasc, Plavix, nitrate, Lipitor, subcutaneous heparin and aspirin therapy. Derrick Terrazas MD
--- NOTE | 2017-01-12 03:37 | PN ---
DATE: 01/11/2017 SUBJECTIVE: The patient is experiencing dizziness. He denies any history of seizures. No chest pain. PHYSICAL EXAMINATION VITAL SIGNS: Blood pressure 145/91, heart rate 67, temperature 98.3, respirations 20. HEENT: Normocephalic. CHEST: Clear. HEART: S1 and S2 regular. EXTREMITIES: No edema. LABORATORY DATA: White count, hemoglobin, hematocrit and platelet count are within normal limit. Today, his chemistry is entirely within normal limit. ASSESSMENT: 1. Status post multiple drug abuse including cocaine, benzodiazepine and opiates. 2. History of coronary artery disease. 3. Status post permanent pacemaker placement. 4. Hypertension. RECOMMENDATIONS: Continue current aspirin, subcutaneous heparin, Lipitor, Norvasc. The patient will be transferred to [facility]. Derrick Terrazas MD
[2017-01-12] MEDS: Oxycodone/Acetaminophen 10/325 mg Tab PO PRN ×3 (06:05→18:12)
[2017-01-12 07:09] LABS: BASO # 0.02 K/mm3 (0.0-2.0); BASO % 0.4 % (0.0-3.0); EOS # 0.1 (0.0-0.7); EOS % 1.7 % (1.5-5.0); GRAN # 1.33 (1.4-6.5); GRAN % 24.6 % (50.0-68.0); HEMOGLOBIN 15.7 gm/dL (14.0-18.0); LYMPH # 3.4 (1.2-3.4); LYMPH % 63.8 % (22.0-35.0); MEAN CELL VOLUME 91.9 fL (80.0-105.0); MEAN CORPUSCULAR HEMOGLOBIN 32.4 pg (25.0-35.0); MEAN CORPUSCULAR HGB CONC 35.3 g/dl (31.0-37.0); MEAN PLATELET VOLUME 10.3 fl (7.0-11.0); MONO # 0.5 (0.1-0.6); MONO % 9.5 % (1.0-6.0); PLATELET COUNT 174 10^3/uL (120.0-450.0); RBC 4.84 10^6/uL (3.5-6.1); RED CELL DISTRIBUTION WIDTH 14.2 % (11.5-14.5); WHITE BLOOD COUNT 5.4 10^3/ul (4.5-11.0)
[2017-01-12 07:28] LABS: BLOOD UREA NITROGEN 14 mg/dL (7-21); CALCIUM 9.2 mg/dL (8.4-10.5); GFR AFRICAN-AMERICAN > 60; GFR NON-AFRICAN AMERICAN > 60
--- NOTE | 2017-01-12 13:47 | CP.PCM.PN ---
<Tunde Capellan - Last Filed: 01/12/17 13:54> Subjective - Date & Time of Evaluation Date of Evaluation: 01/12/17 Time of Evaluation: 13:44 - Subjective Subjective: Pt seen and examined at bedside. Pt complaining of chest pain overnight, but chest pain is similar to his chronic chest pain. Otherwise, pt continues to work with physical therapy. Denies CP, SOB, N/V/D. Objective - Vital Signs/Intake and Output Vital Signs (last 24 hours): Temp Pulse Resp BP Pulse Ox 97 F L 61 16 134/90 96 01/12/17 12:00 01/12/17 12:00 01/12/17 12:00 01/12/17 12:00 01/12/17 05:49 Intake and Output: 01/12/17 01/12/17 06:59 18:59 Intake Total 680 Output Total 2200 Balance -1520 - Medications Medications: Current Medications Acetaminophen (Tylenol 325mg Tab) 650 mg PO Q4H PRN PRN Reason: Headache Last Admin: 01/10/17 06:48 Dose: 650 mg Alprazolam (Xanax) 0.5 mg PO BID PRN; Protocol PRN Reason: Anxiety Amlodipine Besylate (Norvasc) 2.5 mg PO DAILY [facility] Last Admin: 01/12/17 11:01 Dose: 2.5 mg Aspirin (Ecotrin) 81 mg PO DAILY [facility] Last Admin: 01/12/17 11:01 Dose: 81 mg Atorvastatin Calcium (Lipitor) 40 mg PO DIN [facility] Last Admin: 01/11/17 18:05 Dose: 40 mg Citalopram Hydrobromide (Celexa) 20 mg PO DAILY [facility] Clopidogrel Bisulfate (Plavix) 75 mg PO DAILY [facility] Last Admin: 01/12/17 11:02 Dose: 75 mg Diazepam (Valium) 5 mg PO BID [facility] PRN Reason: Protocol Last Admin: 01/12/17 11:02 Dose: 5 mg Divalproex Sodium (Depakote Dr(*Bid*)) 500 mg PO BID [facility] Famotidine (Pepcid) 20 mg PO BID [facility] Last Admin: 01/12/17 11:02 Dose: 20 mg Heparin Sodium (Porcine) (Heparin) 5,000 units SC Q12 [facility] PRN Reason: Protocol Last Admin: 01/12/17 11:02 Dose: 5,000 units Sodium Chloride (Sodium Chloride 0.9%) 1,000 mls @ 100 mls/hr IV .Q10H [facility] Last Admin: 01/10/17 01:51 Dose: 100 mls/hr Ibuprofen (Motrin Tab) 600 mg PO Q6H PRN PRN Reason: Pain, moderate (4-7) Last Admin: 01/11/17 22:11 Dose: 600 mg Ketorolac Tromethamine (Toradol) 60 mg IM Q8H PRN PRN Reason: Pain, severe (8-10) Stop: 01/15/17 14:28 Lidocaine HCl (Lidocaine 2% Viscous) 15 ml MM Q3H PRN PRN Reason: mouth pain Last Admin: 01/11/17 18:05 Dose: 15 ml Meclizine HCl (Antivert) 25 mg PO BID [facility] Last Admin: 01/12/17 11:02 Dose: 25 mg Nitroglycerin (Nitrostat Sl Tab) 0.4 mg SL Q5M PRN PRN Reason: chest pain Last Admin: 01/10/17 02:21 Dose: 0.4 mg Ondansetron HCl (Zofran Inj) 4 mg IVP Q6H PRN PRN Reason: Pain, moderate (4-7) Oxycodone/Acetaminophen (Percocet 10/325 Mg Tab) 1 tab PO Q6H PRN PRN Reason: Pain, severe (8-10) Last Admin: 01/12/17 12:08 Dose: 1 tab Quetiapine Fumarate (Seroquel) 25 mg PO HS [facility] PRN Reason: Protocol Last Admin: 01/11/17 22:05 Dose: 25 mg - Labs Labs: 01/12/17 07:04 01/12/17 07:04 PT 10.8 Seconds (9.9-11.8) 01/09/17 23:41 INR 1.00 (0.93-1.08) 01/09/17 23:41 APTT 30.1 Seconds (23.7-30.8) 01/09/17 23:41 - Constitutional Appears: Well, No Acute Distress - Head Exam Head Exam: ATRAUMATIC, NORMAL INSPECTION, NORMOCEPHALIC - Respiratory Exam Respiratory Exam: Clear to Ausculation Bilateral, NORMAL BREATHING PATTERN - Cardiovascular Exam Cardiovascular Exam: RRR, +S1, +S2 Additional comments: No reproducible chest pain on palpation - GI/Abdominal Exam GI & Abdominal Exam: Soft, Normal Bowel Sounds. absent: Tenderness - Extremities Exam Extremities Exam: absent: Calf Tenderness, Pedal Edema - Neurological Exam Neurological Exam: Alert, Awake, Oriented x3 - Skin Skin Exam: Intact, Normal Color, Warm Assessment and Plan - Assessment and Plan (Free Text) Plan: 51 y/o M with PMH of [place], IVC filter, pacemaker, IVDA, anxiety, schizophrenia, and chronic subclavian thrombus presented to the ED for chest pain along with nausea and vomiting secondary to his vertigo. ACS was ruled out and physical therapy recommended patient be placed in [facility] for [facility]. Awaiting placement at this time. Vertigo - Neurology recommends vestibular therapy and Valium - Continue Meclizine 25 BID, Zofran 4mg PRN - Neurology consulted - Pt high fall risk and in need of vestibular therapy as per physical therapy Chronic unstable angina - ACS r/o, Troponins negative - Continue Percocet q6 PRN, motrin q6 PRN, toradol 60 Q8 - Cardio consulted Anxiety - Continue Seroquel - Restart xanax Schizophrenia - Restart Depakote and Celexa PPX - Pepcid - Heparin Seen, reviewed, and discussed with attending Marilia PGY-2 <Cresencio Bangura - Last Filed: 01/12/17 20:51> Objective - Vital Signs/Intake and Output Vital Signs (last 24 hours): Temp Pulse Resp BP Pulse Ox 97.4 F L 67 18 136/88 96 01/12/17 18:00 01/12/17 18:00 01/12/17 18:00 01/12/17 18:00 01/12/17 05:49 Intake and Output: 01/12/17 01/13/17 18:59 06:59 Intake Total 600 Output Total 900 Balance -300 - Medications Medications: Current Medications Acetaminophen (Tylenol 325mg Tab) 650 mg PO Q4H PRN PRN Reason: Headache Last Admin: 01/10/17 06:48 Dose: 650 mg Alprazolam (Xanax) 0.5 mg PO BID PRN; Protocol PRN Reason: Anxiety Last Admin: 01/12/17 14:31 Dose: 0.5 mg Amlodipine Besylate (Norvasc) 2.5 mg PO DAILY [facility] Last Admin: 01/12/17 11:01 Dose: 2.5 mg Aspirin (Ecotrin) 81 mg PO DAILY [facility] Last Admin: 01/12/17 11:01 Dose: 81 mg Atorvastatin Calcium (Lipitor) 40 mg PO DIN [facility] Last Admin: 01/12/17 17:38 Dose: 40 mg Citalopram Hydrobromide (Celexa) 20 mg PO DAILY [facility] Last Admin: 01/12/17 14:31 Dose: 20 mg Clopidogrel Bisulfate (Plavix) 75 mg PO DAILY [facility] Last Admin: 01/12/17 11:02 Dose: 75 mg Diazepam (Valium) 5 mg PO BID [facility] PRN Reason: Protocol Last Admin: 01/12/17 17:39 Dose: 5 mg Divalproex Sodium (Depakote Dr(*Bid*)) 500 mg PO BID [facility] Last Admin: 01/12/17 17:38 Dose: 500 mg Famotidine (Pepcid) 20 mg PO BID [facility] Last Admin: 01/12/17 17:38 Dose: 20 mg Heparin Sodium (Porcine) (Heparin) 5,000 units SC Q12 [facility] PRN Reason: Protocol Last Admin: 01/12/17 11:02 Dose: 5,000 units Sodium Chloride (Sodium Chloride 0.9%) 1,000 mls @ 100 mls/hr IV .Q10H [facility] Last Admin: 01/10/17 01:51 Dose: 100 mls/hr Ibuprofen (Motrin Tab) 600 mg PO Q6H PRN PRN Reason: Pain, moderate (4-7) Last Admin: 01/11/17 22:11 Dose: 600 mg Lidocaine HCl (Lidocaine 2% Viscous) 15 ml MM Q3H PRN PRN Reason: mouth pain Last Admin: 01/11/17 18:05 Dose: 15 ml Meclizine HCl (Antivert) 25 mg PO BID [facility] Last Admin: 01/12/17 17:38 Dose: 25 mg Nitroglycerin (Nitrostat Sl Tab) 0.4 mg SL Q5M PRN PRN Reason: chest pain Last Admin: 01/10/17 02:21 Dose: 0.4 mg Ondansetron HCl (Zofran Inj) 4 mg IVP Q6H PRN PRN Reason: Pain, moderate (4-7) Oxycodone/Acetaminophen (Percocet 10/325 Mg Tab) 1 tab PO Q6H PRN PRN Reason: Pain, severe (8-10) Last Admin: 01/12/17 18:12 Dose: 1 tab Quetiapine Fumarate (Seroquel) 25 mg PO HS [facility] PRN Reason: Protocol Last Admin: 01/11/17 22:05 Dose: 25 mg - Labs Labs: 01/12/17 07:04 01/12/17 07:04 PT 10.8 Seconds (9.9-11.8) 01/09/17 23:41 INR 1.00 (0.93-1.08) 01/09/17 23:41 APTT 30.1 Seconds (23.7-30.8) 01/09/17 23:41 Attending/Attestation - Attestation I have personally seen and examined this patient.: Yes I have fully participated in the care of the patient.: Yes I have reviewed all pertinent clinical information, including history, physical exam and plan: Yes Notes (Text): 01/12/17 20:49 Patient t seen and examined at bedside. No overnight issues. Labs, vitals and notes reviewed. History very inconsistent and he keeps changing his reason for admission. Admitted with chest pain in this admission. UDS + cocaine. H/O drug abuse noted. Vitals remain stable . Plan for [facility] if accepted and approved otherwise will be discharged home woth assisted device as in last admission. Agree with the plan of care as outlined by the resident.
[2017-01-12] MEDS: Divalproex 500 mg DR(BID formulation) PO SCH (17:38)
[2017-01-13] MEDS: Oxycodone/Acetaminophen 10/325 mg Tab PO PRN ×4 (00:12→18:18)
[2017-01-13 07:56] LABS: BASO # 0.03 K/mm3 (0.0-2.0); BASO % 0.4 % (0.0-3.0); EOS # 0.1 (0.0-0.7); EOS % 1.2 % (1.5-5.0); GRAN # 1.47 (1.4-6.5); GRAN % 21.8 % (50.0-68.0); HEMOGLOBIN 16.2 gm/dL (14.0-18.0); LYMPH # 4.6 (1.2-3.4); LYMPH % 67.9 % (22.0-35.0); MEAN CELL VOLUME 91.9 fL (80.0-105.0); MEAN CORPUSCULAR HGB CONC 34.8 g/dl (31.0-37.0); MEAN PLATELET VOLUME 10.2 fl (7.0-11.0); MONO # 0.6 (0.1-0.6); MONO % 8.7 % (1.0-6.0); PLATELET COUNT 189 10^3/uL (120.0-450.0); RBC 5.07 10^6/uL (3.5-6.1); RED CELL DISTRIBUTION WIDTH 14.5 % (11.5-14.5); WHITE BLOOD COUNT 6.8 10^3/ul (4.5-11.0)
[2017-01-13] MEDS: Divalproex 500 mg DR(BID formulation) PO SCH ×2 (09:32→17:12)
--- NOTE | 2017-01-13 13:16 | CP.PCM.PN ---
<Raven Montesinos - Last Filed: 01/13/17 16:01> Subjective - Date & Time of Evaluation Date of Evaluation: 01/13/17 Time of Evaluation: 13:13 - Subjective Subjective: Pt seen and examined at bedside. Pt cont. to complain of his chronic chest pain , which he states hasnt improved. Patient denes SOB, Nausea, Vomiting, or Diarrhea. Patient states his dizziness has gotten slightly worse. Patient complained of constipation, and asked for a laxative or stool softener. He said he is having bowel movements but not much is coming out. Denies any blood in the stool. Objective - Vital Signs/Intake and Output Vital Signs (last 24 hours): Temp Pulse Resp BP Pulse Ox 97.7 F 61 20 110/81 97 01/13/17 07:33 01/13/17 07:33 01/13/17 07:33 01/13/17 09:34 01/13/17 07:33 Intake and Output: 01/13/17 01/13/17 06:59 18:59 Intake Total 240 Output Total 1050 Balance -810 - Medications Medications: Current Medications Acetaminophen (Tylenol 325mg Tab) 650 mg PO Q4H PRN PRN Reason: Headache Last Admin: 01/10/17 06:48 Dose: 650 mg Alprazolam (Xanax) 0.5 mg PO BID PRN; Protocol PRN Reason: Anxiety Last Admin: 01/13/17 06:41 Dose: 0.5 mg Amlodipine Besylate (Norvasc) 2.5 mg PO DAILY [facility] Last Admin: 01/13/17 09:34 Dose: 2.5 mg Aspirin (Ecotrin) 81 mg PO DAILY [facility] Last Admin: 01/13/17 09:32 Dose: 81 mg Atorvastatin Calcium (Lipitor) 40 mg PO DIN [facility] Last Admin: 01/12/17 17:38 Dose: 40 mg Citalopram Hydrobromide (Celexa) 20 mg PO DAILY [facility] Last Admin: 01/13/17 09:33 Dose: 20 mg Clopidogrel Bisulfate (Plavix) 75 mg PO DAILY [facility] Last Admin: 01/13/17 09:32 Dose: 75 mg Diazepam (Valium) 5 mg PO BID [facility] PRN Reason: Protocol Last Admin: 01/13/17 09:33 Dose: 5 mg Divalproex Sodium (Depakote Dr(*Bid*)) 500 mg PO BID [facility] Last Admin: 01/13/17 09:32 Dose: 500 mg Docusate Sodium (Colace) 100 mg PO BID [facility] Last Admin: 01/13/17 12:15 Dose: 100 mg Famotidine (Pepcid) 20 mg PO BID [facility] Last Admin: 01/13/17 09:33 Dose: 20 mg Heparin Sodium (Porcine) (Heparin) 5,000 units SC Q12 [facility] PRN Reason: Protocol Last Admin: 01/13/17 09:33 Dose: 5,000 units Sodium Chloride (Sodium Chloride 0.9%) 1,000 mls @ 100 mls/hr IV .Q10H [facility] Last Admin: 01/10/17 01:51 Dose: 100 mls/hr Ibuprofen (Motrin Tab) 600 mg PO Q6H PRN PRN Reason: Pain, moderate (4-7) Last Admin: 01/11/17 22:11 Dose: 600 mg Lidocaine HCl (Lidocaine 2% Viscous) 15 ml MM Q3H PRN PRN Reason: mouth pain Last Admin: 01/11/17 18:05 Dose: 15 ml Meclizine HCl (Antivert) 25 mg PO BID [facility] Last Admin: 01/13/17 09:33 Dose: 25 mg Nitroglycerin (Nitrostat Sl Tab) 0.4 mg SL Q5M PRN PRN Reason: chest pain Last Admin: 01/10/17 02:21 Dose: 0.4 mg Ondansetron HCl (Zofran Inj) 4 mg IVP Q6H PRN PRN Reason: Pain, moderate (4-7) Oxycodone/Acetaminophen (Percocet 10/325 Mg Tab) 1 tab PO Q6H PRN PRN Reason: Pain, severe (8-10) Last Admin: 01/13/17 12:16 Dose: 1 tab Quetiapine Fumarate (Seroquel) 25 mg PO HS [facility] PRN Reason: Protocol Last Admin: 01/12/17 23:08 Dose: 25 mg - Labs Labs: 01/13/17 06:45 01/12/17 07:04 PT 10.8 Seconds (9.9-11.8) 01/09/17 23:41 INR 1.00 (0.93-1.08) 01/09/17 23:41 APTT 30.1 Seconds (23.7-30.8) 01/09/17 23:41 - Constitutional Appears: Well, Toxic, No Acute Distress - Head Exam Head Exam: ATRAUMATIC, NORMOCEPHALIC - Eye Exam Eye Exam: EOMI - Neck Exam Neck Exam: absent: Lymphadenopathy - Respiratory Exam Respiratory Exam: Clear to Ausculation Bilateral. absent: Rhonchi, Wheezes, Stridor - Cardiovascular Exam Cardiovascular Exam: +S1, +S2 - GI/Abdominal Exam GI & Abdominal Exam: Soft. absent: Distended, Tenderness - Neurological Exam Neurological Exam: Alert, Oriented x3 - Psychiatric Exam Psychiatric exam: Normal Affect, Normal Mood - Skin Skin Exam: Dry, Intact, Normal Color, Warm Assessment and Plan - Assessment and Plan (Free Text) Assessment: 51 y/o M with PMH of [place], IVC filter, pacemaker, IVDA, anxiety, schizophrenia, and chronic subclavian thrombus presented to the ED for chest pain along with nausea and vomiting secondary to his vertigo. ACS was ruled out and physical therapy recommended patient be placed in [facility] for [facility]. Awaiting placement at this time. Will follow up with where he will be placed tomorrow. There will be no change in current management. Plan: 1. Vertigo - Neurology recommends vestibular therapy and Valium - Continue Meclizine 25 BID, Zofran 4mg PRN - Neurology - recs appreciated - Pt high fall risk and in need of vestibular therapy as per physical therapy 2. Chronic unstable angina - ACS r/o, Troponins negative - Continue Percocet q6 PRN, motrin q6 PRN, toradol 60 Q8 - Cardio consulted - recs appreciated 3. Anxiety - Continue Seroquel - Restart xanax 4. Schizophrenia - Restart Depakote and Celexa 5. Constipation -Colace 6. PPX - Pepcid - Heparin Case seen, reviewed and discussed with attending Raven Montesinos PGY1 <Cresencio Bangura - Last Filed: 01/13/17 21:21> Objective - Vital Signs/Intake and Output Vital Signs (last 24 hours): Temp Pulse Resp BP Pulse Ox 98.8 F 71 18 104/70 97 01/13/17 16:00 01/13/17 16:00 01/13/17 16:00 01/13/17 16:00 01/13/17 16:00 Intake and Output: 01/13/17 01/14/17 18:59 06:59 Intake Total 1600 Balance 1600 - Medications Medications: Current Medications Acetaminophen (Tylenol 325mg Tab) 650 mg PO Q4H PRN PRN Reason: Headache Last Admin: 01/13/17 14:50 Dose: 650 mg Alprazolam (Xanax) 0.5 mg PO BID PRN; Protocol PRN Reason: Anxiety Last Admin: 01/13/17 19:50 Dose: 0.5 mg Amlodipine Besylate (Norvasc) 2.5 mg PO DAILY [facility] Last Admin: 01/13/17 09:34 Dose: 2.5 mg Aspirin (Ecotrin) 81 mg PO DAILY [facility] Last Admin: 01/13/17 09:32 Dose: 81 mg Atorvastatin Calcium (Lipitor) 40 mg PO DIN [facility] Last Admin: 01/13/17 17:12 Dose: 40 mg Citalopram Hydrobromide (Celexa) 20 mg PO DAILY [facility] Last Admin: 01/13/17 09:33 Dose: 20 mg Clopidogrel Bisulfate (Plavix) 75 mg PO DAILY [facility] Last Admin: 01/13/17 09:32 Dose: 75 mg Diazepam (Valium) 5 mg PO BID [facility] PRN Reason: Protocol Last Admin: 01/13/17 17:13 Dose: 5 mg Divalproex Sodium (Depakote Dr(*Bid*)) 500 mg PO BID [facility] Last Admin: 01/13/17 17:12 Dose: 500 mg Docusate Sodium (Colace) 100 mg PO BID [facility] Last Admin: 01/13/17 17:12 Dose: 100 mg Famotidine (Pepcid) 20 mg PO BID [facility] Last Admin: 01/13/17 17:13 Dose: 20 mg Heparin Sodium (Porcine) (Heparin) 5,000 units SC Q12 [facility] PRN Reason: Protocol Last Admin: 01/13/17 09:33 Dose: 5,000 units Sodium Chloride (Sodium Chloride 0.9%) 1,000 mls @ 100 mls/hr IV .Q10H [facility] Last Admin: 01/10/17 01:51 Dose: 100 mls/hr Ibuprofen (Motrin Tab) 600 mg PO Q6H PRN PRN Reason: Pain, moderate (4-7) Last Admin: 01/11/17 22:11 Dose: 600 mg Lidocaine HCl (Lidocaine 2% Viscous) 15 ml MM Q3H PRN PRN Reason: mouth pain Last Admin: 01/11/17 18:05 Dose: 15 ml Meclizine HCl (Antivert) 25 mg PO BID [facility] Last Admin: 01/13/17 17:13 Dose: 25 mg Nitroglycerin (Nitrostat Sl Tab) 0.4 mg SL Q5M PRN PRN Reason: chest pain Last Admin: 01/10/17 02:21 Dose: 0.4 mg Ondansetron HCl (Zofran Inj) 4 mg IVP Q6H PRN PRN Reason: Pain, moderate (4-7) Oxycodone/Acetaminophen (Percocet 10/325 Mg Tab) 1 tab PO Q6H PRN PRN Reason: Pain, severe (8-10) Last Admin: 01/13/17 18:18 Dose: 1 tab Quetiapine Fumarate (Seroquel) 25 mg PO HS [facility] PRN Reason: Protocol Last Admin: 01/12/17 23:08 Dose: 25 mg - Labs Labs: 01/13/17 06:45 01/12/17 07:04 PT 10.8 Seconds (9.9-11.8) 01/09/17 23:41 INR 1.00 (0.93-1.08) 01/09/17 23:41 APTT 30.1 Seconds (23.7-30.8) 01/09/17 23:41 Attending/Attestation - Attestation I have personally seen and examined this patient.: Yes I have fully participated in the care of the patient.: Yes I have reviewed all pertinent clinical information, including history, physical exam and plan: Yes Notes (Text): 01/13/17 21:20 Patient seen and examined at bedside. He feels better with no new complaint except constipation. vitals, labs and notes reviewed. Agree with the plan outlined by the resident, awaiting [facility] disposition.
[2017-01-14] MEDS: Oxycodone/Acetaminophen 10/325 mg Tab PO PRN ×3 (00:03→12:11)
[2017-01-14 07:21] LABS: BLOOD UREA NITROGEN 22 mg/dL (7-21); CALCIUM 9.4 mg/dL (8.4-10.5); GFR AFRICAN-AMERICAN > 60; GFR NON-AFRICAN AMERICAN > 60
[2017-01-14 07:31] LABS: HEMOGLOBIN 16.6 gm/dL (14.0-18.0); MEAN CELL VOLUME 92.1 fL (80.0-105.0); MEAN CORPUSCULAR HEMOGLOBIN 32.1 pg (25.0-35.0); MEAN CORPUSCULAR HGB CONC 34.9 g/dl (31.0-37.0); MEAN PLATELET VOLUME 10.2 fl (7.0-11.0); RBC 5.17 10^6/uL (3.5-6.1); RED CELL DISTRIBUTION WIDTH 14.3 % (11.5-14.5); WHITE BLOOD COUNT 6.9 10^3/ul (4.5-11.0)
[2017-01-14 07:32] VITALS: RESP 20
[2017-01-14] MEDS: Divalproex 500 mg DR(BID formulation) PO SCH (11:22)
[2017-01-14] MEDS ORDERED: Oxycodone/Acetaminophen 10/325 mg Tab PO STA (16:27)
[2017-01-14 16:33] VITALS: BP 124/85; PULSE 82; TEMP 98.4; O2SAT 98
--- NOTE | 2017-01-14 20:40 | CARD ---
APPROVED REPORT EKG Measurement Heart [id number] <Conclusion> Normal sinus rhythm Possible Left atrial enlargement Borderline ECG
--- NOTE | 2017-01-14 23:04 | CP.PCM.DIS ---
<JAMES HART - Last Filed: 01/14/17 22:21> Provider - Provider Date of Admission: 01/11/17 16:26 Attending physician: Leonel Granda MD Time Spent in preparation of Discharge (in minutes): 50 Hospital Course - Lab Results Lab Results: Most Recent Lab Values WBC 6.9 10^3/ul (4.5-11.0) 01/14/17 06:35 RBC 5.17 10^6/uL (3.5-6.1) 01/14/17 06:35 Hgb 16.6 gm/dL (14.0-18.0) 01/14/17 06:35 Hct 47.6 % (42.0-52.0) 01/14/17 06:35 MCV 92.1 fL (80.0-105.0) 01/14/17 06:35 MCH 32.1 pg (25.0-35.0) 01/14/17 06:35 MCHC 34.9 g/dl (31.0-37.0) 01/14/17 06:35 RDW 14.3 % (11.5-14.5) 01/14/17 06:35 Plt Count 193 10^3/uL (120.0-450.0) 01/14/17 06:35 MPV 10.2 fl (7.0-11.0) 01/14/17 06:35 Gran % 21.8 % (50.0-68.0) L 01/13/17 06:45 Lymph % (Auto) 67.9 % (22.0-35.0) H 01/13/17 06:45 [place] % (Auto) 8.7 % (1.0-6.0) H 01/13/17 06:45 Eos % (Auto) 1.2 % (1.5-5.0) L 01/13/17 06:45 Baso % (Auto) 0.4 % (0.0-3.0) 01/13/17 06:45 Gran # 1.47 (1.4-6.5) 01/13/17 06:45 Lymph # 4.6 (1.2-3.4) H 01/13/17 06:45 [place] # 0.6 (0.1-0.6) 01/13/17 06:45 Eos # 0.1 (0.0-0.7) 01/13/17 06:45 Baso # 0.03 K/mm3 (0.0-2.0) 01/13/17 06:45 Neutrophils % (Manual) 33 % (50.0-70.0) L 01/11/17 06:00 Band Neutrophils % 0 % (0-2) 01/10/17 07:30 Lymphocytes % (Manual) 55 % (22.0-35.0) H 01/11/17 06:00 Atypical Lymphs % 3 % (0.0-0.0) H 01/11/17 06:00 Monocytes % (Manual) 8 % (1.0-6.0) H 01/11/17 06:00 Eosinophils % (Manual) 1 % (0.0-3.0) 01/11/17 06:00 Platelet Evaluation Normal (NORMAL) 01/10/17 07:30 PT 10.8 Seconds (9.9-11.8) 01/09/17 23:41 INR 1.00 (0.93-1.08) 01/09/17 23:41 APTT 30.1 Seconds (23.7-30.8) 01/09/17 23:41 Sodium 141 mmol/L (132-148) 01/14/17 06:35 Potassium 4.1 mmol/L (3.6-5.0) 01/14/17 06:35 Chloride 105 mmol/L (98-107) 01/14/17 06:35 Carbon Dioxide 24 mmol/L (21-33) 01/14/17 06:35 Anion Gap 16 (10-20) 01/14/17 06:35 BUN 22 mg/dL (7-21) H 01/14/17 06:35 Creatinine 0.8 mg/dL (0.5-1.4) 01/14/17 06:35 Est GFR ( Amer) > 60 01/14/17 06:35 Est GFR (Non-Af Amer) > 60 01/14/17 06:35 Random Glucose 96 mg/dL (70-110) 01/14/17 06:35 Calcium 9.4 mg/dL (8.4-10.5) 01/14/17 06:35 Phosphorus 4.2 mg/dL (2.5-4.5) 01/10/17 07:00 Magnesium 2.0 mg/dL (1.7-2.2) 01/10/17 07:00 Total Bilirubin 0.6 mg/dL (0.2-1.3) 01/10/17 07:00 AST 39 U/L (15-59) 01/10/17 07:00 ALT 28 U/L (7-56) 01/10/17 07:00 Alkaline Phosphatase 54 U/L (38-133) 01/10/17 07:00 Lactate Dehydrogenase 344 U/L (333-699) 01/10/17 21:35 Total Creatine Kinase < 20 U/L (35-230) L 01/10/17 21:35 Troponin I < 0.01 ng/mL 01/10/17 21:35 NT-Pro-B Natriuret Pep 317 pg/mL (0-450) 01/09/17 23:41 Total Protein 7.5 g/dL (5.8-8.3) 01/10/17 07:00 Albumin 3.7 g/dL (3.0-4.8) 01/10/17 07:00 Globulin 3.8 gm/dL 01/10/17 07:00 Albumin/Globulin Ratio 1.0 (1.1-1.8) L 01/10/17 07:00 Triglycerides 155 mg/dL (35-160) 01/09/17 23:41 Cholesterol 167 mg/dL (130-200) 01/09/17 23:41 LDL Cholesterol Direct 109 mg/dL (0-129) 01/09/17 23:41 HDL Cholesterol 33 mg/dL (29-60) 01/09/17 23:41 Urine Color Yellow (YELLOW) 01/11/17 08:30 Urine Appearance Clear (CLEAR) 01/11/17 08:30 Urine pH 6.5 (4.7-8.0) 01/11/17 08:30 Ur Specific [place] <= 1.005 (1.005-1.035) 01/11/17 08:30 Urine Protein Negative mg/dL (<30 mg/dL) 01/11/17 08:30 Urine Glucose (UA) Negative mg/dL (NEGATIVE) 01/11/17 08:30 Urine Ketones Negative mg/dL (NEGATIVE) 01/11/17 08:30 Urine Blood Negative (NEGATIVE) 01/11/17 08:30 Urine Nitrate Negative (NEGATIVE) 01/11/17 08:30 Urine Bilirubin Negative (NEGATIVE) 01/11/17 08:30 Urine Urobilinogen 0.2 E.U./dL (<1 E.U./dL) 01/11/17 08:30 Ur Leukocyte Esterase Negative Carolyn/uL (NEGATIVE) 01/11/17 08:30 Urine Opiates Screen Positive (NEGATIVE) H 01/10/17 08:30 Urine Methadone Screen Negative (NEGATIVE) 01/10/17 08:30 Ur Barbiturates Screen Negative (NEGATIVE) 01/10/17 08:30 Ur Phencyclidine Scrn Negative (NEGATIVE) 01/10/17 08:30 Ur Amphetamines Screen Negative (NEGATIVE) 01/10/17 08:30 U Benzodiazepines Scrn Positive (NEGATIVE) H 01/10/17 08:30 U Oth Cocaine Metabols Positive (NEGATIVE) H 01/10/17 08:30 U Cannabinoids Screen Negative (NEGATIVE) 01/10/17 08:30 Alcohol, Quantitative < 10 mg/dL (0-10) 01/09/17 23:41 - Hospital Course Hospital Course: Mr. Hull is a 51 year old male with PMHx MIx2, IVC filter, pacemaker, HTN, HLD bipolar disease, schizophrenia and a hx of chronic pain presents to [facility] on 01/09/2017 with complaints of chest pain and nausea/vomiting. Patient states he is here with the same exact symptoms that had him admitted on 12/29. He states that he also has syncopal episodes which concern him since he lives alone. He also has not been able to keep food down in the past two days. He also mentions headaches that are accompanied with tinnitus. Patient denies shortness of breath , diarrhea. In ED, CXR showed no active dz. CT Head showed no active dz. EKG showed NSR. Utox was +Cocaine, Benzos and opiates. Patient was transferred to the medicine floors for further management and workup. On the floors, patient received Zofran for n/v, and toradol for pain, however, he requested that he receive his prescribed Percocet. Neurology was consulted and they recommended Valium while in the hospital, vestibular therapy, PT eval and JUWAN upon discharge. PT recommended JUWAN. The patient's discharge was pending insurance authorization, and the patient was stable in the meantime. This morning, the patient presented no complains and states that he is ready for rehab because he is worried about falling again and is worried because of his history with falls and multiple fractures. The patient denies fever, chills , n/v/d, cough or chest pain, abd pain. The patient is being sent to [facility] for further rehab and optimization. - Date & Time of H&P Date of H&P: 01/10/17 Time of H&P: 05:35 Discharge Exam - Head Exam Head Exam: ATRAUMATIC, NORMOCEPHALIC - Eye Exam Eye Exam: EOMI, Normal appearance - ENT Exam ENT Exam: Mucous Membranes Moist, Normal Exam - Respiratory Exam Respiratory Exam: Clear to PA & Lateral, NORMAL BREATHING PATTERN, UNREMARKABLE. absent: Accessory Muscle Use, Chest Wall Tenderness, Rales, Rhonchi, Wheezes, Respiratory Distress, Stridor - Cardiovascular Exam Cardiovascular Exam: REGULAR RHYTHM, RRR, +S1, +S2. absent: Gallop, JVD, Rubs, Systolic Murmur - GI/Abdominal Exam GI & Abdominal Exam: Normal Bowel Sounds, Soft, Unremarkable. absent: Distended , Tenderness - Neurological Exam Neurological exam: Alert, Normal Gait, Oriented x3 - Psychiatric Exam Psychiatric exam: Normal Affect, Normal Mood - Skin Skin Exam: Normal Color, Warm Discharge Plan - Discharge Medications Prescriptions: Aspirin [Ecotrin] 81 mg PO DAILY #7 Citalopram [celEXA] 20 mg PO DAILY #7 tab Clopidogrel [Plavix] 75 mg PO DAILY #7 tab Divalproex [Depakote DR(*BID*)] 500 mg PO BID #14 tcp Meclizine [Meclizine*] 25 mg PO BID #14 tab QUEtiapine [Seroquel] 50 mg PO HS #7 tab - Follow Up Plan Condition: STABLE Disposition: REHAB FACILITY/REHAB UNIT Instructions: Chest Pain (DC), Fall Prevention (DC) Additional Instructions: Mr. Hull, You are being discharged to receive further rehab for your dizziness, unsteady gait and nausea/vomiting. 1. Meds: Lipitor Take one daily Aspirin Take one daily Plavis Take one daily Depakote Take TWO daily Celexa Take one daily Seroquel Take one daily at night Meclizine Take TWO daily 2. Please followup with your primary care physician once you are discharged for continued care of your condition. 3. Please followup with a neurologist for further evaluation and therapy for your dizziness and unsteady gait. 4. When walking, please use an assistive device (cane or walker) for support. Thank you, James Hart, PGY1 Dr. Granda, Attending Physician <Leonel Granda - Last Filed: 01/15/17 09:19> Provider - Provider Date of Admission: 01/11/17 16:26 Attending physician: Leonel Granda [facility] Course - Lab Results Lab Results: Most Recent Lab Values WBC 6.9 10^3/ul (4.5-11.0) 01/14/17 06:35 RBC 5.17 10^6/uL (3.5-6.1) 01/14/17 06:35 Hgb 16.6 gm/dL (14.0-18.0) 01/14/17 06:35 Hct 47.6 % (42.0-52.0) 01/14/17 06:35 MCV 92.1 fL (80.0-105.0) 01/14/17 06:35 MCH 32.1 pg (25.0-35.0) 01/14/17 06:35 MCHC 34.9 g/dl (31.0-37.0) 01/14/17 06:35 RDW 14.3 % (11.5-14.5) 01/14/17 06:35 Plt Count 193 10^3/uL (120.0-450.0) 01/14/17 06:35 MPV 10.2 fl (7.0-11.0) 01/14/17 06:35 Gran % 21.8 % (50.0-68.0) L 01/13/17 06:45 Lymph % (Auto) 67.9 % (22.0-35.0) H 01/13/17 06:45 [place] % (Auto) 8.7 % (1.0-6.0) H 01/13/17 06:45 Eos % (Auto) 1.2 % (1.5-5.0) L 01/13/17 06:45 Baso % (Auto) 0.4 % (0.0-3.0) 01/13/17 06:45 Gran # 1.47 (1.4-6.5) 01/13/17 06:45 Lymph # 4.6 (1.2-3.4) H 01/13/17 06:45 [place] # 0.6 (0.1-0.6) 01/13/17 06:45 Eos # 0.1 (0.0-0.7) 01/13/17 06:45 Baso # 0.03 K/mm3 (0.0-2.0) 01/13/17 06:45 Neutrophils % (Manual) 33 % (50.0-70.0) L 01/11/17 06:00 Band Neutrophils % 0 % (0-2) 01/10/17 07:30 Lymphocytes % (Manual) 55 % (22.0-35.0) H 01/11/17 06:00 Atypical Lymphs % 3 % (0.0-0.0) H 01/11/17 06:00 Monocytes % (Manual) 8 % (1.0-6.0) H 01/11/17 06:00 Eosinophils % (Manual) 1 % (0.0-3.0) 01/11/17 06:00 Platelet Evaluation Normal (NORMAL) 01/10/17 07:30 PT 10.8 Seconds (9.9-11.8) 01/09/17 23:41 INR 1.00 (0.93-1.08) 01/09/17 23:41 APTT 30.1 Seconds (23.7-30.8) 01/09/17 23:41 Sodium 141 mmol/L (132-148) 01/14/17 06:35 Potassium 4.1 mmol/L (3.6-5.0) 01/14/17 06:35 Chloride 105 mmol/L (98-107) 01/14/17 06:35 Carbon Dioxide 24 mmol/L (21-33) 01/14/17 06:35 Anion Gap 16 (10-20) 01/14/17 06:35 BUN 22 mg/dL (7-21) H 01/14/17 06:35 Creatinine 0.8 mg/dL (0.5-1.4) 01/14/17 06:35 Est GFR ( Amer) > 60 01/14/17 06:35 Est GFR (Non-Af Amer) > 60 01/14/17 06:35 Random Glucose 96 mg/dL (70-110) 01/14/17 06:35 Calcium 9.4 mg/dL (8.4-10.5) 01/14/17 06:35 Phosphorus 4.2 mg/dL (2.5-4.5) 01/10/17 07:00 Magnesium 2.0 mg/dL (1.7-2.2) 01/10/17 07:00 Total Bilirubin 0.6 mg/dL (0.2-1.3) 01/10/17 07:00 AST 39 U/L (15-59) 01/10/17 07:00 ALT 28 U/L (7-56) 01/10/17 07:00 Alkaline Phosphatase 54 U/L (38-133) 01/10/17 07:00 Lactate Dehydrogenase 344 U/L (333-699) 01/10/17 21:35 Total Creatine Kinase < 20 U/L (35-230) L 01/10/17 21:35 Troponin I < 0.01 ng/mL 01/10/17 21:35 NT-Pro-B Natriuret Pep 317 pg/mL (0-450) 01/09/17 23:41 Total Protein 7.5 g/dL (5.8-8.3) 01/10/17 07:00 Albumin 3.7 g/dL (3.0-4.8) 01/10/17 07:00 Globulin 3.8 gm/dL 01/10/17 07:00 Albumin/Globulin Ratio 1.0 (1.1-1.8) L 01/10/17 07:00 Triglycerides 155 mg/dL (35-160) 01/09/17 23:41 Cholesterol 167 mg/dL (130-200) 01/09/17 23:41 LDL Cholesterol Direct 109 mg/dL (0-129) 01/09/17 23:41 HDL Cholesterol 33 mg/dL (29-60) 01/09/17 23:41 Urine Color Yellow (YELLOW) 01/11/17 08:30 Urine Appearance Clear (CLEAR) 01/11/17 08:30 Urine pH 6.5 (4.7-8.0) 01/11/17 08:30 Ur Specific [place] <= 1.005 (1.005-1.035) 01/11/17 08:30 Urine Protein Negative mg/dL (<30 mg/dL) 01/11/17 08:30 Urine Glucose (UA) Negative mg/dL (NEGATIVE) 01/11/17 08:30 Urine Ketones Negative mg/dL (NEGATIVE) 01/11/17 08:30 Urine Blood Negative (NEGATIVE) 01/11/17 08:30 Urine Nitrate Negative (NEGATIVE) 01/11/17 08:30 Urine Bilirubin Negative (NEGATIVE) 01/11/17 08:30 Urine Urobilinogen 0.2 E.U./dL (<1 E.U./dL) 01/11/17 08:30 Ur Leukocyte Esterase Negative Carolyn/uL (NEGATIVE) 01/11/17 08:30 Urine Opiates Screen Positive (NEGATIVE) H 01/10/17 08:30 Urine Methadone Screen Negative (NEGATIVE) 01/10/17 08:30 Ur Barbiturates Screen Negative (NEGATIVE) 01/10/17 08:30 Ur Phencyclidine Scrn Negative (NEGATIVE) 01/10/17 08:30 Ur Amphetamines Screen Negative (NEGATIVE) 01/10/17 08:30 U Benzodiazepines Scrn Positive (NEGATIVE) H 01/10/17 08:30 U Oth Cocaine Metabols Positive (NEGATIVE) H 01/10/17 08:30 U Cannabinoids Screen Negative (NEGATIVE) 01/10/17 08:30 Alcohol, Quantitative < 10 mg/dL (0-10) 01/09/17 23:41 Attending/Attestation - Attestation I have personally seen and examined this patient.: Yes I have fully participated in the care of the patient.: Yes I have reviewed all pertinent clinical information, including history, physical exam and plan: Yes Notes (Text): 01/14/17 51 year old male with past medical history of CAD, hypertension, schizophrenia, and chronic chest pain and vertigo who presented with chest pain and vertigo. He was recently discharged from hospital after presenting with similar complaints. Urine drug screen was positive for cocaine, benzodiazepines, and opiates. He was counselled on risks of continued substance and opiates abuse. 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 He was seen by PT who recommended [facility]. Patient is discharged to [facility] today. Follow up with pmd and reinforcing steel erector. Counselled on risks of continued substance and opiates abuse. Leonel Granda MD Hospitalist.
--- NOTE | 2017-01-15 01:20 | PN ---
SUBJECTIVE: The patient is experiencing postural dizziness. PHYSICAL EXAMINATION: VITAL SIGNS: Blood pressure 96/59, heart rate 71, temperature 97.8, and respirations 20. HEENT: Normocephalic. CHEST: Clear. HEART: S1 and S2 regular. EXTREMITIES: No edema. LABORATORY DATA: His chemistry remains within normal limits except BUN of 22. CBC today is within normal limits. ASSESSMENT: 1. Postural dizziness. 2. Status post cocaine and opiate abuse. 3. History of coronary artery disease as well as permanent pacemaker placement. RECOMMENDATIONS: Optimize hydration. Continue subcutaneous heparin. Continue Lipitor at 40 mg once a day and discontinue Norvasc. Continue Seroquel, Plavix, and p.r.n. Zofran. Obtain 12-lead EKG. Derrick Terrazas MD
== END 2017-01-14 18:33 | DRG 65 ==
LOC: ED 22:46 → ERH 01-10 00:56 → 2RNO 01-10 02:55 → OBSVTOIN 01-11 16:26 → 5RNO 01-12 23:32
PROVIDERS: ADMIT Internal Medicine; ATTEND Internal Medicine
DX: H81.10 Benign paroxysmal vertigo, unspecified ear (principal); I11.0 Hypertensive heart disease with heart failure; I50.9 Heart failure, unspecified; I27.2 Other secondary pulmonary hypertension; I82.B22 Chronic embolism and thrombosis of left subclavian vein; F11.10 Opioid abuse, uncomplicated; F14.10 Cocaine abuse, uncomplicated; F13.10 Sedative, hypnotic or anxiolytic abuse, uncomplicated; F20.9 Schizophrenia, unspecified; H93.19 Tinnitus, unspecified ear; F31.9 Bipolar disorder, unspecified; E78.5 Hyperlipidemia, unspecified; F41.9 Anxiety disorder, unspecified; G89.29 Other chronic pain; I25.10 Atherosclerotic heart disease of native coronary artery without angina pectoris; I25.2 Old myocardial infarction; I48.91 Unspecified atrial fibrillation; Z95.0 Presence of cardiac pacemaker; K59.00 Constipation, unspecified; R29.6 Repeated falls; Z79.82 Long term (current) use of aspirin; Z87.891 Personal history of nicotine dependence; Z95.5 Presence of coronary angioplasty implant and graft; F32.89 Other specified depressive episodes; Z91.048 Other nonmedicinal substance allergy status; R40.2412 Glasgow coma scale score 13-15, at arrival to emergency department; Z87.19 Personal history of other diseases of the digestive system; I25.110 Atherosclerotic heart disease of native coronary artery with unstable angina pectoris